=== PATIENT | male | born 1985 | race Caucasian/White ===

== ENCOUNTER 2024-01-17 21:07 | Emergency (ER) | payer MEDICAID, SELFPAY ==
[2024-01-17 21:07] VITALS: BMI 35.6
== END 2024-01-17 21:44 | disposition left against medical advice (07) ==
PROVIDERS: Emergency Provider Emergency Medicine
DX: Z53.21 Procedure and treatment not carried out due to patient leaving prior to being seen by health care provider (principal)

== ENCOUNTER 2025-03-15 15:39 | Inpatient (IN) | payer MEDICAID, SELFPAY ==
[2025-03-15 16:08] VITALS: BP 120/82; PULSE 86; RESP 18; TEMP 36.8; O2SAT 100; BMI 37.5
--- NOTE | 2025-03-15 16:16 | XR_ITS ---
EXAMINATION: PA chest single view TECHNIQUE: Upright PA chest single view Date and time: March 15, 2025, 1633 hours, comparison February 13, 2024 INDICATIONS: Chest pain after falling today. FINDINGS: Mild prominence left ventricle Mild to moderate vascular congestion. No pneumothorax. Clavicles ribs appear intact IMPRESSION: Mild to moderate vascular congestion No pneumothorax pulmonary contusion or hemothorax
--- NOTE | 2025-03-15 16:16 | XR_ITS ---
EXAMINATION: Left elbow 2 views TECHNIQUE: AP lateral left elbow 2 views Date and time: March 15, 2025, 1635 hours. FINDINGS: Fracture of the medial ulna with nondisplaced 17 mm fracture fragment Distal humerus radial head and neck appear intact IMPRESSION: Recommend CT scan elbow follow-up to better assess fractures of the proximal ulna
--- NOTE | 2025-03-15 16:16 | EKG_ITS ---
[facility] Test Date: 2025-03-15 Pat Name: MAIRA NICHOLS Department: Room: - Gender: Male Senior [employer]er [employer]: : 1985 Requested By: Mercedes Corrales Order Number: [id number] Reading MD: Mercedes Corrales Measurements Intervals Donie Rate: 99 P: 47 DC: 173 QRS: -26 QRSD: 123 T: 60 QT: 352 QTc: 452 Interpretive Statements SINUS RHYTHM BORDERLINE LEFT AXIS DEVIATION [QRS AXIS < -20] POSSIBLE RIGHT VENTRICULAR CONDUCTION DELAY [RSR (QR) IN V1/V2] Compared to ECG 12/14/2023 22:43:55 No significant changes /store/S0/[id number].pdf
[2025-03-15 16:48] LABS: Basophils # (Auto) 0.0 Thou/mm3 (0.0-0.2); Basophils % (Auto) 0 % (0-2.5); Eosinophils # (Auto) 0.4 Thou/mm3 (0.0-0.5); Eosinophils % (Auto) 5 % (0-10); Immature Granulocytes Auto 0.03 Thou/mm3 (0.00-0.00); Lymphocytes # (Auto) 1.4 Thou/mm3 (1.0-4.8); Lymphocytes % (Auto) 16 % (10-50); Mean Corpuscular HGB Conc 25.4 g/dl (31.0-37.0); Mean Corpuscular Hemoglobin 15.5 pg (25.0-35.0); Mean Corpuscular Volume 61 fL (80-100); Monocytes # (Auto) 0.9 Thou/mm3 (0.0-0.8); Monocytes % (Auto) 10 % (0-12); Neutrophils # (Auto) 5.8 Thou/mm3 (1.8-7.7); Neutrophils % (Auto) 68 % (37-80); Nucleated Red Blood Cell # 0.02 Thou/mm3 (0.00-0.00); Nucleated Red Blood Cell % 0 /100 WBC (0); Platelet Count 453 Thou/mm3 (140-440); RDW Standard Deviation 48.8 fL (35.1-43.9); Red Blood Count 3.03 Miln/mm3 (4.50-5.90); White Blood Count 8.5 Thou/mm3 (3.8-10.6)
[2025-03-15 17:06] LABS: Hematocrit 18.5 % (41.0-53.0); Hemoglobin 4.7 g/dL (13.5-16.0)
[2025-03-15 17:10] LABS: D-Dimer 717 ng/mL (<600)
[2025-03-15 17:13] LABS: Path Review Blood Smear Sent to Pathologist
--- NOTE | 2025-03-15 17:17 | PD.EDRME ---
Rapid Medical Screening Exam RME Arrival date/time: 03/15/25 15:39 This is a case of 40-year-old male who came into the emergency room initially with with both pain due to fall patient have also chest pain and shortness of breath for 2 weeks Chief Complaint: Extremity Injury, Upper Time Seen by Provider: 03/15/25 15:42 Vital signs: Vital Signs Temperature 98.2 F 03/15/25 16:08 Pulse Rate 86 03/15/25 16:08 Respiratory Rate 18 03/15/25 16:08 Blood Pressure 120/82 03/15/25 16:08 Pulse Oximetry (%) 100 03/15/25 16:08 Oxygen Delivery Method Room Air 03/15/25 16:08 Exam: Moderate tenderness on the left elbow ROM limited neurovascular intact normal rate regular rhythm no murmur clear breath Clinical Impression: Chest pain left elbow pain
[2025-03-15 17:25] LABS: B-Type Natriuretic Peptide 45 pg/mL (0-100)
[2025-03-15 17:27] LABS: Alanine Aminotransferase 16 U/L (10-49); Albumin, Serum 4.8 gm/dL (3.5-5.0); Albumin/Globulin Ratio 2.0 (1.2-2.2); Alkaline Phosphatase 72 U/L (46-116); Anion Gap 10 (7-16); Aspartate Amino Transferase < 8 U/L (0-34); BUN/Creatinine Ratio 13 Ratio (12-20); Bilirubin,Total 0.5 mg/dL (0.3-1.2); Blood Urea Nitrogen 15 mg/dL (9-23); Calcium 9.9 mg/dL (8.3-10.6); Calcium (Corrected) 9.9 mg/dL (8.5-10.1); Carbon Dioxide 24.1 mMol/L (20.0-31.0); Chloride 107 mMol/L (98-107); Creatinine (Component) 1.2 mg/dL (0.6-1.3); Estimated Creatinine Clearance 119.2 mL/min (>60); Globulin 2.4 gm/dL (2.3-3.5); Glucose 97 mg/dL (74-106); Osmolality,Calculated 282 (275-295); Potassium 4.0 mMol/L (3.4-5.1); Sodium 141 mMol/L (136-145); Total Protein 7.2 gm/dL (5.7-8.2); Troponin I < 0.020 ng/mL (0.0-0.045); eGFR > 60 See Note
--- NOTE | 2025-03-15 17:31 | XR_ITS ---
EXAMINATION: Left wrist 2 views TECHNIQUE: AP lateral left wrist 2 views Date and time: March 15, 2025, 1732 hours INDICATIONS: Patient fell today with injury of the wrist, wrist pain. FINDINGS: Acute nondisplaced comminuted fractures distal radial metaphysis Carpal bones intact IMPRESSION: Acute nondisplaced comminuted fractures distal radial metaphysis
--- NOTE | 2025-03-15 17:37 | XR_ITS ---
Examination: Humerus 2 views left Technique: Humerus, AP lateral 2 views Date and time of exam: March 15, 2025, 1737 hours INDICATIONS: Injury to the arm today, arm pain. FINDINGS: No shoulder fracture or dislocation Shaft of the humerus intact IMPRESSION: Negative for fracture
--- NOTE | 2025-03-15 17:39 | EDNOTE_ITS ---
Upper Extremity Injury RME/HPI General Chief Complaint: Extremity Injury, Upper Stated Complaint: L) ARM INJURY, SOB, CHEST PAIN Time Seen by Provider: 03/15/25 15:42 Arrival date/time: 03/15/25 15:39 Limitations: no limitations RME / HPI RME / HPI narrative: 03/15/25 15:39 This is a case of 40-year-old male who came into the emergency room initially with with both pain due to fall patient have also chest pain and shortness of breath for [address] MARIELLE KAM ED EVALUATION 40 year old male with no stated medical history presents to the ED for evaluation of left upper extremity pain after ground level mechanical fall today. States he was carrying stuff while at work when he tripped on a ladder, causing him to fall landing on his left side. Reports majority of pain is located to his elbow area that shoots down to his wrist. No head injury or LOC. No other injuries reported. In the ED, patient additionally complains of on/off mild sharp chest pain, shortness of breath, and feeling fatigued over the course of 1 month. Worse with exertion. Denies consulting his PCP regarding these symptoms. Denies any bleeding gums, epistaxis, hematemesis, abdominal pain, hematuria, hematochezia, or melena. Denies any known history of anemia. No blood thinners, no asp/plavix,ibuprofen Exam: Moderate tenderness on the left elbow ROM limited neurovascular intact normal rate regular rhythm no murmur clear breath Impression: Chest pain left elbow pain Related Data Previous Rx's ?Medication ?Instructions ?Recorded ibuprofen 800 mg tablet (IBU) 800 mg PO TID PRN pain # 30 tabs 08/31/18 ibuprofen 800 mg tablet 800 mg PO TID PRN pain #30 t abs 02/06/23 albuterol sulfate 90 mcg/actuation 2 puff inhalation Q 6H PRN 12/15/23 aerosol inhaler (Ventolin HFA) shortness of breath or wheezing #8.5 grams Allergies Allergy/AdvReac Type Severity Reaction Status Date / Time avocado Allergy Unknown SWELLING, Verified 03/15/25 15:43 DIFF BREATHING Bee Stings Allergy Unknown Uncoded 03/15/25 15:43 MELONS Allergy Unknown SWELLING, Uncoded 03/15/25 15:43 DIFF BREATHING Nut Tree Allergy Unknown Uncoded 03/15/25 15:43 Review of Systems Review of Systems Systems Reviewed: All systems reviewed, normal except as documented ED Exam General Limitations: Present no limitations General appearance: Present alert and in no apparent distress Head Head exam: Present atraumatic, normocephalic and normal inspection Eye Eye exam: Present normal appearance, PERRL and EOMI ENT ENT exam: Present normal exam, normal oropharynx and mucous membranes moist Neck Neck exam: Present normal inspection, full ROM and trachea midline Chest Chest inspection: Present normal inspection and symmetric chest wall rise Respiratory Respiratory exam: Present normal lung sounds bilaterally Cardiovascular Cardiovascular exam: Present regular rate, normal rhythm and normal heart sounds Abdominal Exam Abdominal exam: Present soft, normal bowel sounds and other (No bruising appreciated on patient's chest abdomen nor back); Absent distention, tenderness, guarding, rebound or rigidity Extremities Exam Extremities exam: Present full ROM and other (Compartments soft, skin intact 1+ edema bilateral lower extremities, 2+ radial and ulnar pulses throughout ; tenderness palpation at the left upper extremity at the level of the humerus elbow as well as wrist.) Back Exam Back exam: Present normal inspection, full ROM and other (No midline tenderness palpation, no step-offs or deformities, no bruising appreciated,); Absent tenderness Neurological Exam Neurological exam: Present alert, oriented X3, CN II-XII intact and normal gait Psychiatric Psychiatric exam: Present normal affect and normal mood Skin Skin exam: Present warm, dry, intact and pallor Course Quality Measures none Orders Category Date Time Status EKG (ED ONLY) *Do not use* NOW Care 03/15/25 16:17 Completed Transfuse,blood/blood products NOW Care 03/15/25 17:37 Active splint [Splint / Immobilizer] STAT Care 03/15/25 17:47 Active Consult to Gastroenterology Stat Cons 03/15/25 17:40 Ordered EKG (ED Only) Stat Exams 03/15/25 16:16 Draft XR chest 1V Stat Exams 03/15/25 16:16 Completed XR elbow LT 2V Stat Exams 03/15/25 16:16 Completed XR humerus LT MIN 2V Stat Exams 03/15/25 17:37 Completed XR wrist LT 2V Stat Exams 03/15/25 17:31 Completed BNP [B-Type Natriuretic Peptide] Stat Lab 03/15/25 16:31 Completed CBC Stat Lab 03/15/25 16:31 Completed Comprehensive Metabolic Panel Stat Lab 03/15/25 16:31 Completed D-Dimer Stat Lab 03/15/25 16:31 Completed Path Review Blood Smear Stat Lab 03/15/25 16:31 Completed Troponin I Stat Lab 03/15/25 16:31 Completed Type and Screen Stat Lab 03/15/25 17:26 Results Urinalysis Stat Lab 03/15/25 16:16 Ordered prbc [Red Blood Cells] Stat Lab 03/15/25 17:26 Results HYDROcodone*/APAP 5/325 [[place] 5/325] Med 03/15/25 17:31 Discontinued 1 tab PO X1 ONE Vital Signs Vital signs: Vital Signs Temperature 98.2 F 03/15/25 16:08 Pulse Rate 86 03/15/25 16:08 Respiratory Rate 18 03/15/25 16:08 Blood Pressure 120/82 03/15/25 16:08 Pulse Oximetry (%) 100 03/15/25 16:08 Oxygen Delivery Method Room Air 03/15/25 16:08 Pulse ox is 100% on room air which is adequate. PROCEDURES: Orthopedic Splinting/Casting Injury #1: Side: left Upper Extremity Injury Location: elbow and forearm Upper Extremity Immobilizer: sugar tong splint (double sugar tong ) Extremity Injury MDM Narrative MDM Narrative:: Phoebe Buchanan am scribing for and in the presence of Dr. Harrington. Patient is a 40-year-old male is in the emerged from with concerns for weakness, left arm pain after he fell. Vital signs and exam as listed. Concern for fracture dislocation, soft tissue injury of the left upper extremity. Compartment soft less likely compartment syndrome. With regards to weakness concern for metabolic disturbance, pneumonia, ACS arrhythmia electrolyte abnormality among others. Patient without dysuria less likely urinary tract infection. Ordered x-rays of the humerus elbow wrist, EKG chest x-ray and labs. Patient did not hit his head, has no head or neck pain, less likely intracranial and cervical spine injury. X-rays of the left upper extremity with evidence of a fracture of the distal radius as well as the proximal ulna. Patient is neurovascularly intact. Fractures are not displaced. No need for reduction. Patient was placed in a double sugar-tong splint. Post splint check patient is neurovascularly intact. Definitive management performed here in the emergency department. Patient was advised that when he gets discharged he is to follow-up with an orthopedic surgeon as an outpatient. Chest x-ray unremarkable. EKG performed today 1619 notable for sinus rhythm, normal intervals, nonspecific T wave changes, not a cardiac alert. Patient does have a hemoglobin of 4.7 previously was 11. Hematocrit is 18.5. Microcytic anemia. Patient without any sources of bleeding, weakness preceded patient's fall today. Given that patient does not have any bruising no chest or belly pains, all of his extremities are soft, less likely acute bleed. Suspect possible slow GI bleed. Consulted on-call jet engine mechanic Dr. Martin, in agreement for GI evaluation tomorrow. Request that patient be n.p.o. at midnight. Labs without any acute metabolic disturbance, troponin not elevated, dimer elevated however this test was ordered by advanced practice provider prior to my evaluation. Patient is not short of breath no hemoptysis no lower extremity swelling, has not been immobile does not take any hormonal medication has not been tachycardic, short of breath or hypoxic. Less likely pulmonary embolus. 1738: I spoke with hospitalist team C for admission. Discussed patients PMHx, HPI, ED course, exam findings, labs, and radiology results. I did discuss elevated dimer, given patient's current presentation, less likely pulmonary embolus. Will hold off on CT angio at this time. Hospitalist team in agreement. 1740: I spoke with GI Dr. Martin. Discussed patients PMHx, HPI, ED course, exam findings, lab results. He agrees to consult. Updated patient, patient in agreement with treatment plan. Agrees to receive blood transfusion, evaluation of his symptomatic anemia and workup per hospitalist team. Total critical care time: Approximately?35?minutes Due to a high probability of clinically significant, life threatening deterioration, the patient required my highest level of preparedness to intervene emergently and I personally spent this critical care time directly and personally managing the patient. This critical care time included obtaining a history; examining the patient; pulse oximetry; ordering and review of studies; arranging urgent treatment with development of a management plan; evaluation of patient's response to treatment; frequent reassessment; and, discussions with other providers. This critical care time was performed to assess and manage the high probability of imminent, life-threatening deterioration that could result in multi-organ failure. It was exclusive of separately billable procedures and treating other patients and teaching time. Please see MDM section and the rest of the note for further information on patient assessment and treatment. Patient data External records reviewed:: [facility] previous records Clinical information provided by:: patient Social determinants that could affect healthcare access:: none Patient has the following chronic illnesses:: None reported How is presenting disease/condition affected by chronic disease/condition?: no chronic disease Evaluation data The following diagnostics were reviewed and interpreted by me:: lab results, radiology exam(s) and EKG tracing(s) (EKG @ 16:19, interpreted by me, normal sinus rhythm, rate 99, borderline left axis deviation, no STEMI.) Lab and/or radiology exams considered but not ordered:: None Interpretation Summary: Ordering Physician: Mercedes Maloney Date of Service: 03/15/25 Procedure(s): XR chest 1V Accession Number(s): [id number] cc: Jose Powell MD; Main Main MD; Mercedes Maloney~ EXAMINATION: PA chest single view TECHNIQUE: Upright PA chest single view Date and time: March 15, 2025, 1633 hours, comparison February 13, 2024 INDICATIONS: Chest pain after falling today. FINDINGS: Mild prominence left ventricle Mild to moderate vascular congestion. No pneumothorax. Clavicles ribs appear intact IMPRESSION: Mild to moderate vascular congestion No pneumothorax pulmonary contusion or hemothorax Dictated By: Main Main MD Signed By: <Electronically signed by Main Main MD in OV> 03/15/25 1720 ======= Ordering Physician: Mercedes Maloney Date of Service: 03/15/25 Procedure(s): XR elbow LT 2V Accession Number(s): [id number] cc: Jose Powell MD; Main Main MD; Mercedes Maloney~ EXAMINATION: Left elbow 2 views TECHNIQUE: AP lateral left elbow 2 views Date and time: March 15, 2025, 1635 hours. FINDINGS: Fracture of the medial ulna with nondisplaced 17 mm fracture fragment Distal humerus radial head and neck appear intact IMPRESSION: Recommend CT scan elbow follow-up to better assess fractures of the proximal ulna Dictated By: Main Main MD Signed By: <Electronically signed by Main Main MD in OV> 03/15/25 1714 Medications / Prescriptions Medications or Prescriptions considered but not ordered:: None Medication administrations:: Medication Administration History Discontinued Medications Hydrocodone Bitart/Acetaminophen (Hydrocodone/[place] 5/325 Tablet) 1 tab PO X1 ONE Stop: 03/15/25 17:32 Last Admin: 03/15/25 17:50 Dose: 1 tab Documented By: TM See above Consultations Consultation(s) initiated? (list below): Yes Consultation #1 (Physician, Specialty, Details): See MDM Diagnosis Upper Extremity Injury Differential Diagnosis: sprain and strain of wrist, fracture of wrist and fracture of humerus Most likely diagnosis given after review of the tests above:: Symptomatic anemia Medial ulnar fracture Weakness Admission Indicated Admission indicated?: indicated Admission Request Was there a request for admission?: Yes Admission Attestation Admission request attestation: Discussed case with [] from Hospitalist service regarding admission. Discussed patients ED course, exam findings, labs, and radiology results. The Hospitalist [agrees,declines] to accept the patient for admission. Disposition Plan Disposition Plan: Admit Discharge Plan Plan Patient Disposition: Admit Acute Care w/in Hospital Prescriptions/Referrals Prescriptions/Med Rec: No Action ibuprofen [IBU] 800 mg tablet 800 mg PO TID PRN (Reason: pain) Qty: 30 0RF ibuprofen 800 mg tablet 800 mg PO TID PRN (Reason: pain) Qty: 30 0RF albuterol sulfate [Ventolin HFA] 90 mcg/actuation HFA aerosol inhaler 2 puff inhalation Q6H PRN (Reason: shortness of breath or wheezing) Qty: 8.5 0RF Referrals: Jose Powell MD [Primary Care Provider, Family Practice] - In 1 week Problem List Clinical Impression: Symptomatic anemia, Weakness, Fracture, ulna Patient/Caregiver Discharge Instructions Print Language: Lithuanian Stand Alone Forms: Rissa Award Info., Patient Portal Info Letter
[2025-03-15] MEDS: HYDROcodone/APAP 5/325 TABLET 1 TAB PO ×2 (17:50→22:18)
[2025-03-15 19:25] VITALS: BP 129/73; PULSE 99; RESP 18; TEMP 36.8; O2SAT 95
--- NOTE | 2025-03-15 19:54 | ESHP_ITS ---
<Statement entered by Sylvia Valverde MD - 03/16/25 02:47> Patient is 40 yr male with PMH of asthma and meth use who presented to the ED for evaluation of left upper extremity pain after fall. Patient fell on left arm after feeling lightheaded. No head injury or LOC. No other injuries reported. Able to move fingers and no associated numbness at present. Endorses worsening fatigue since past few months. Denies any hematemasis, hematochezia, or melena. Hb 4.7, MCV 67. EKG Sinus rhythm HR 99. XR elbow showed Fracture of the medial ulna with nondisplaced 17 mm fracture fragment. Distal humerus radial head and neck appear intact. Wrist Xr showed acute nondisplaced comminuted fractures distal radial metaphysis. CT elbow ordered per ortho. Showed Acute fractures involving the coronoid process of the ulna with displaced bone fragments. Suspicious for nondisplaced fracture of the radial neck. Day team spoke with ortho who was not concerned about need for emergent surgery of arm. Stated okay to admit patient. Dr. Martin was consulted. Planning for EGD to evaluate potential source of GI bleed. Continue IV PP 40 BID, NPO, start prbc transfusion. Patient to see ortho outpatient for mgmt of fracture. Note reviewed, I agree with most of its contents and agree with the patient's care as documented by Dr. Lan. The patient's management plan was discussed with my attending physician Dr. Piña. Sylvia Valverde, PGY-2 Documentation for date of: 03/15/25 HPI History of Present Illness History of present illness: 40 year old male with history of asthma and meth use who presented to the ED for evaluation of left upper extremity pain after ground level fall today. Admitted for acute microcytic anemia. ED Course Summary Vitals: BP 120/82 HR HR 86 RR 18 T 98.2F O2 sat 100% Labs: Hgb 4.7 MCV 67 Plt 453 D-dimer 717 EKG: Sinus rhythm HR 99 possible L axis deviation QTc [address]: Acute fractures involving the coronoid process of the ulna with displaced bone fragments. Suspicious for nondisplaced fracture of the radial neck Humerus XR: negative for fracture Wrist XR: acute nondisplaced comminuted fractures distal radial metaphysis Elbow XR: Fracture of the medial ulna with nondisplaced 17 mm fracture fragment. Distal humerus radial head and neck appear intact Chest XR: Mild to moderate vascular congestion. No pneumothorax pulmonary contusion or hemothorax Treatment: Narco x1 Consults and why: Dr. Martin for acute anemia Upon initial review patient confirms narrative from ED. States he was carrying stuff while at work when he stood up to fast and got lightheaded from standing up to fast, causing him to fall landing on his left side with his arm bent backwards. Reports majority of pain is located to his elbow area that shoots down to his wrist. No head injury or LOC. No other injuries reported. Able to move fingers and no associated numbness at present. Patient additionally complains of on/off mild sharp chest pain, shortness of breath, and feeling fatigued over the course of 1-2 months. Worse with exertion. Not associated with eating. States it usually occurs after working in the heat and that he does not drink enough water - mainly sodas. Also confirms he intermittently/frequently does methamphetamines. Denies consulting his PCP regarding these symptoms. Denies any bleeding gums, epistaxis, hematemesis, abdominal pain, hematuria, hematochezia. Denies any known history of anemia. No blood thinners, no asp/plavix, ibuprofen. Has regular BMs 1-2 per day. Additionally, patient also has difficulty completely emptying his bladder at times and needing to urinate 1-2x per hour each night. He thinks he may have an enlarged prostate but is not concerned with it at the moment. Code: Full Insulin: None Medical Hx: Asthma - no current treatments Medications: None Allergies: Avocado, bee stings, melons, nuts Surgical history: Noncontributory Fhx: Noncontributory Living: Housed with and kids and cousins Work: [employer] Alcohol: 1 beer/week Cigarettes/tobacco: 1/2 pack per day for 20 years --> 10 pack years Recreational drugs: Cannabis Meth (UDS done after opiates given in ED) Patient admitted for: Acute microcytic anemia All 12 systems reviewed and were negative except otherwise stated in HPI. Exam Vital Signs Temp Pulse Resp BP Pulse Ox O2 Del Method 98.2 F 99 18 129/73 95 Room Air 03/15/25 19:25 03/15/25 19:25 03/15/25 19:25 03/15/25 19:25 03/15/25 19:25 03/15/25 19:25 Narrative Exam GENERAL APPEARANCE: AOx3. NAD, activity normal for age, well developed/ well nourished, no cyanosis or diaphoresis. + pallor. Poor capillary refill >3 seconds HEENT: Normocephalic atraumatic, no facial trauma, neck is supple. L ids/conjunctiva pale. Mucous membranes moist, nares normal, lips/teeth normal uvula midline without oral pharyngeal erythema, exudate or swelling TMs normal bilaterally. No lymphangitis/lymphedema. CARDIAC: Regular rate and rhythm, S1+S2 heard. No murmurs, rubs, or gallops noted RESPIRATORY: respiratory effort normal, speaks in full sentences, no tripod position, no accessory muscle use. Lungs clear to auscultation with minor bilateral wheezes ABDOMINAL: NBS. Soft, ND/NT. No evidence of fluid wave. No pulsatile masses on exam, rebound tenderness, Landrum sign or pain over Mcburney's point. MUSCLES/EXTREMITIES: L arm in sling no numbness, able to wiggle fingers. +2 pedal edema DERM: Warm, pink and dry. No rashes, dermatoses, petechiae or lesions. NEUROLOGICAL: Speech is clear and appropriate. Normal level of consciousness. Gait and coordination are normal. 5/5 strength in all extremities. PSYCH: Normal mood and affect. Judgement/competence is appropriate Results: Labs 03/15/25 16:31 03/15/25 16:31 Labs: Short CBC 03/15/25 Range/Units 16:31 WBC 8.5 (3.8-10.6) Thou/mm3 Hgb 4.7 L* (13.5-16.0) g/dL Hct 18.5 L* (41.0-53.0) % Plt Count 453 H (140-440) Thou/mm3 BMP 03/15/25 16:31 Sodium 141 Potassium 4.0 Chloride 107 Carbon Dioxide 24.1 BUN 15 Creatinine 1.2 Glucose 97 Calcium 9.9 Cardiac Enzymes 03/15/25 Range/Units 16:31 Troponin I < 0.020 (0.0-0.045) ng/mL Liver Function 03/15/25 Range/Units 16:31 Total Bilirubin 0.5 (0.3-1.2) mg/dL AST < 8 (0-34) U/L ALT 16 (10-49) U/L Alkaline Phosphatase 72 (46-116) U/L Albumin 4.8 (3.5-5.0) gm/dL Quality Measures Quality Measures VTE prophylaxis Medications Home Medications and Allergies Allergies Allergy/AdvReac Type Severity Reaction Status Date / Time avocado Allergy Unknown SWELLING, Verified 03/15/25 15:43 DIFF BREATHING Bee Stings Allergy Unknown Uncoded 03/15/25 15:43 MELONS Allergy Unknown SWELLING, Uncoded 03/15/25 15:43 DIFF BREATHING Nut Tree Allergy Unknown Uncoded 03/15/25 15:43 Visit Medications Discontinued Medications Hydrocodone Bitart/Acetaminophen (Hydrocodone/Apap 5/325 Tablet) 1 tab PO X1 ONE Stop: 03/15/25 17:32 Last Admin: 03/15/25 17:50 Dose: 1 tab Assessment & Plan Plan 40 year old male with history of asthma and meth use who presented to the ED for evaluation of left upper extremity pain after ground level fall today. Admitted for acute microcytic anemia. Given 3 units of PRBCs in ED (03/16/2025). #Acute symptomatic anemia #GI bleed? Hgb 4.7 HCT 18.5 MCV 61 on admission. Presented due to arm fracture after falling from a lightheaded episode.additionally complains of on/off mild sharp chest pain, shortness of breath, and feeling fatigued over the course of 1-2 months. Worse with exertion. Not associated with eating. States it usually occurs after working in the heat and that he does not drink enough water - mainly sodas. Also confirms he intermittently/frequently does methamphetamines. Denies any bleeding gums, epistaxis, hematemesis, abdominal pain, hematuria, hematochezia. Denies any known history of anemia. No blood thinners, no asp/plavix, ibuprofen. Patient most likely is volume depleted/anemic. Has prolonged capillary refill >3 seconds and mucosal and nail pallor. Given 3 units of PRBCs in ED. Blood products given therefore not appropriate time to do iron panel for anemia. Plan: -SCDs -Orthostatic vitals -Iron studies -FUP post transfusion H+H -Transfuse if Hgb >7 -FUP Peripheral blood smear -GI Dr. Martin consulted --> NPO for possible EGD #Acute undisplaced fractures of coronoid process #Acute non-displaced fracture of distal radial metaphysis #Fall Patient presents after ground level fall where he reports his elbow bent backwards. fragments. Suspicious for non-displaced fracture of the radial neck. Humerus XR: negative for fracture. Wrist XR: acute non-displaced comminuted fractures distal radial metaphysis. Elbow XR: Fracture of the medial ulna with non-displaced 17 mm fracture fragment. Distal humerus radial head and neck appear intact. Plan: -Splinted in ED -F/U Elbow CT -Consider Ortho consult if available as warranted. #Prostatomegaly? Ddx BPH Patient also has difficulty completely emptying his bladder at times and needing to urinate 1-2x per hour each night. He thinks he may have an enlarged prostate but is not concerned with it at the moment. Plan: -Tamsulosin initiation after EGD -FUP outpatient with urology #Hx of asthma Patient was on an inhaler for many years, decided 10 years ago to stop using his inhaler because he was using it too much. Minor bilateral wheezes on exam. Plan: -Duonebs PRN Q4HRRT #Hx of Polysubstance Use Patient reports using methamphetamines and cannabis. UDS +Meth +cannabis +opiates. Patient denies opiate use, of note UDS was taken after administration of Narco. Plan: -Counseled patient on meth cessation Health Maintenance: Code status: Full DVT prophylaxis: SCDs - consider AC with GI prophylaxis: Protonix Diet: NPO pending EGD Wood: None Lines: PIV Supplemental O2: None Disposition: Tele for acute microcytic anemia Patient seen and reviewed with attending Dr. Piña and senior Sylvia Valverde. Note written by Liu Lan MD PGY-1 Attending Provider Attestation/Addendum After examination of the patient and review of the clinical data I feel that this patient needs admission to the hospital for further treatment/evaluation. Plan of care discussed with patient and is in agreement. I Sabi Piña MD, attest that I was physically present for butts portions of evaluation, and examined patient, labs and imagings and plan of care were discussed with IM residents team, and I agree with the findings and plans documented above.
[2025-03-15 19:58] VITALS: BP 134/82; PULSE 98; RESP 18; TEMP 37; O2SAT 98
--- NOTE | 2025-03-15 20:00 | XR_ITS ---
Examination: CT left elbow, without contrast. 2-D sagittal reconstructions. 2-D coronal reconstructions. 3-D reconstructions. Date and time of exam: March 15, 2025, 2056 hours INDICATIONS: Patient fell at work today with injury to the elbow, elbow pain TECHNIQUE: Multiple 1.25 mm axial sections of the elbow, low dose protocols FINDINGS: Acute fractures involving the coronoid process of the ulna with displaced bone fragments Ulnar notch intact Distal humerus including medial and lateral humeral condyles intact Radial head is poorly visualized Suspicious for nondisplaced fracture of the radial neck Impression: Acute fractures involving the coronoid process of the ulna with displaced bone fragments Suspicious for nondisplaced fracture of the radial neck
[2025-03-15 20:15] VITALS: BP 142/92; PULSE 98; RESP 18; TEMP 36.8; O2SAT 99
--- NOTE | 2025-03-15 20:21 | PD.IMCONS ---
HPI Data of Consult Requesting Physician: Miguel Holman MD Primary Care Provider: Jose Powell MD Consult Narrative Reason for consult: H/H 4.7/18.5 History of present illness: 40 years old male presented to the emergency room fall at work after tripping Patient presented with the left arm pain shooting down to the left wrist as well as shortness of breath and weakness On further examination and laboratory testing patient was found to have a hemoglobin of 4.7 hematocrit 18.5 and a platelet count of 1 53,000 and a WBC count of 8.5 D-dimer was 717 No history of any kailey hematemesis melena or bright red bleeding per rectum cc:: cc: Miguel Holman MD Review of Systems Review of Systems Systems Reviewed: All systems reviewed, normal except as documented Meds Home Medications and Allergies Allergies Allergy/AdvReac Type Severity Reaction Status Date / Time avocado Allergy Unknown SWELLING, Verified 03/15/25 15:43 DIFF BREATHING Bee Stings Allergy Unknown Uncoded 03/15/25 15:43 MELONS Allergy Unknown SWELLING, Uncoded 03/15/25 15:43 DIFF BREATHING Nut Tree Allergy Unknown Uncoded 03/15/25 15:43 Exam Vital Signs Temp Pulse Resp BP Pulse Ox O2 Del Method 98.3 F 98 18 142/92 H 99 Room Air 03/15/25 20:15 03/15/25 20:15 03/15/25 20:15 03/15/25 20:15 03/15/25 20:15 03/15/25 19:25 Constitutional Comments: Chronically ill-appearing Routine Respiratory Exam Comments: Normal to auscultation Routine Abdominal Exam Comments: Soft nontender Results Labs 03/15/25 16:31 03/15/25 16:31 Labs: Short CBC 03/15/25 Range/Units 16:31 WBC 8.5 (3.8-10.6) Thou/mm3 Hgb 4.7 L* (13.5-16.0) g/dL Hct 18.5 L* (41.0-53.0) % Plt Count 453 H (140-440) Thou/mm3 BMP 03/15/25 16:31 Sodium 141 Potassium 4.0 Chloride 107 Carbon Dioxide 24.1 BUN 15 Creatinine 1.2 Glucose 97 Calcium 9.9 Cardiac Enzymes 03/15/25 Range/Units 16:31 Troponin I < 0.020 (0.0-0.045) ng/mL Liver Function 03/15/25 Range/Units 16:31 Total Bilirubin 0.5 (0.3-1.2) mg/dL AST < 8 (0-34) U/L ALT 16 (10-49) U/L Alkaline Phosphatase 72 (46-116) U/L Albumin 4.8 (3.5-5.0) gm/dL Assessment and Plan Additional Assessment & Plan Additional Plan: # Anemia blood loss Occult GI bleeding # Shortness of breath secondary to above Plan Agree with the blood transfusion Prior to transfusion iron panel, iron saturation reticulocyte count B12 and folate level IV Protonix Consent obtained for fiberoptic esophagogastroduodenoscopy with possible therapeutic intervention possible biopsy under intravenous moderate sedation scheduled for tomorrow If EGD is negative Will consider doing a fiberoptic colonoscopy prior to discharge Thank you very much for the opportunity to participate in care of this patient
[2025-03-15 20:30] VITALS: BP 122/74; PULSE 93; RESP 18; TEMP 36.9; O2SAT 98
[2025-03-15 21:05] VITALS: BMI 40.1
[2025-03-15] MEDS: FAMOTIDINE INJ 10 MG/ML VIAL 2 ML 20 MG IVP (21:36)
[2025-03-15 22:10] VITALS: BP 135/70; PULSE 101; RESP 18; TEMP 37; O2SAT 100
[2025-03-15 23:41] LABS: Collection Type, Urine Clean Catch; WBC,Urine 0 /hpf (0-5)
[2025-03-15 23:48] LABS: Bilirubin,Urine Negative (Negative); Blood,Urine Negative (Negative); Clarity,Urine Clear (Clear/Hazy); Color,Urine Lt-Yellow (Lt Yel-Yel); Glucose, Urine Negative (Negative); Ketones,Urine Negative (Negative); Leukocyte Esterase,Urine Negative (Negative); Nitrite,Urine Negative (Negative); PH,Urine 5.5 (5.0-7.0); Protein,Urine Negative (Neg - Trace); RBC,Urine < 1 /hpf (0-3); Specific Gravity,Urine 1.021 (1.001-1.035); Squamous Epithelial Cell,Urine < 1 /hpf (0-5); Urobilinogen,Urine Negative mg/dL (0.0-1.0)
--- NOTE | 2025-03-15 23:59 | PC.NURSE ---
Dr. Jennifer rivera holding blood transfusion d/t high BP 169/104
[2025-03-16] VITALS (36 sets, daily range): BP systolic 114–173; BP diastolic 77–118; PULSE 65–97; RESP 9–97; TEMP 36.3–37.4; O2SAT 95–100
[2025-03-16 00:02] LABS: Amphetamine/Methamp Scrn,U Positive (Negative); Barbiturate Screen,Urine Negative (Negative); Benzodiazepines Screen,Urine Negative (Negative); Benzoylecgonine Screen, Ur Negative (Negative); Fentanyl Screen,Urine Negative (Negative); Opiate Screen,Urine Positive (Negative); THC Screen,Urine Positive (Negative)
[2025-03-16 05:46] LABS: Basophils # (Auto) 0.0 Thou/mm3 (0.0-0.2); Basophils % (Auto) 0 % (0-2.5); Eosinophils # (Auto) 0.2 Thou/mm3 (0.0-0.5); Eosinophils % (Auto) 3 % (0-10); Hematocrit 20.9 % (41.0-53.0); Immature Granulocytes Auto 0.02 Thou/mm3 (0.00-0.00); Lymphocytes # (Auto) 1.1 Thou/mm3 (1.0-4.8); Lymphocytes % (Auto) 14 % (10-50); Mean Corpuscular HGB Conc 26.8 g/dl (31.0-37.0); Mean Corpuscular Hemoglobin 17.3 pg (25.0-35.0); Mean Corpuscular Volume 65 fL (80-100); Monocytes # (Auto) 1.0 Thou/mm3 (0.0-0.8); Monocytes % (Auto) 14 % (0-12); Neutrophils # (Auto) 5.0 Thou/mm3 (1.8-7.7); Neutrophils % (Auto) 68 % (37-80); Nucleated Red Blood Cell # 0.02 Thou/mm3 (0.00-0.00); Nucleated Red Blood Cell % 0 /100 WBC (0); Platelet Count 403 Thou/mm3 (140-440); RDW Standard Deviation 57.9 fL (35.1-43.9); Red Blood Count 3.24 Miln/mm3 (4.50-5.90); White Blood Count 7.4 Thou/mm3 (3.8-10.6)
[2025-03-16 06:02] LABS: Hemoglobin 5.6 g/dL (13.5-16.0)
[2025-03-16] MEDS: HYDROcodone/APAP 5/325 TABLET 1 TAB PO ×2 (06:13→10:44)
[2025-03-16 06:24] LABS: Alanine Aminotransferase 14 U/L (10-49); Albumin, Serum 4.5 gm/dL (3.5-5.0); Albumin/Globulin Ratio 1.9 (1.2-2.2); Anion Gap 10 (7-16); Aspartate Amino Transferase 19 U/L (0-34); BUN/Creatinine Ratio 14 Ratio (12-20); Bilirubin,Total 1.1 mg/dL (0.3-1.2); Blood Urea Nitrogen 13 mg/dL (9-23); Calcium 9.3 mg/dL (8.3-10.6); Calcium (Corrected) 9.3 mg/dL (8.5-10.1); Carbon Dioxide 25.4 mMol/L (20.0-31.0); Chloride 106 mMol/L (98-107); Creatinine (Component) 0.9 mg/dL (0.6-1.3); Estimated Creatinine Clearance 164.8 mL/min (>60); Globulin 2.4 gm/dL (2.3-3.5); Glucose 95 mg/dL (74-106); Magnesium 1.9 mg/dL (1.6-2.6); Osmolality,Calculated 281 (275-295); Phosphorous 3.8 mg/dL (2.4-5.1); Potassium 3.8 mMol/L (3.4-5.1); Sodium 141 mMol/L (136-145); Total Protein 6.9 gm/dL (5.7-8.2); eGFR > 60 See Note
[2025-03-16 06:54] LABS: Alkaline Phosphatase 72 U/L (46-116)
--- NOTE | 2025-03-16 08:03 | ESPR_ITS ---
<Statement entered by Zeynep Kendrick MD - 03/17/25 16:24> Pt is seen at beside, scheduled for EGD. Pt is s/p 3 units of pRBCs. Will repeat H-H. no signs of active bleeding. Pt has severe iron deficiency anemia, will order IV iron. Pt is a long time meth user, will order echo. Patient was seen and examined by me personally. I have directly supervised and reviewed documentation by the team resident and agree with its findings. ------- Plan of care was discussed with the attending, Dr. Irasema Kendrick, PGY-2 Documentation for date of: 03/16/25 Subjective Subjective Interval history: patient seen and examined at bedside patient states that he has experienced orthostatic hotn for the past 2 months. he has not seen his pcp in >20 years. denies excessive nsaid use pending EGD received 3 units prbc, post transfusion h and h 6.4 from 4.7, ordered 2 additional PRBC, will transfuse 1 unit this AM start 200 IV iron succrose. for 3 days. Exam Vital Signs Temp Pulse Resp BP Pulse Ox O2 Del Method 97.5 F 81 16 149/95 H 97 Room Air 03/16/25 06:50 03/16/25 07:41 03/16/25 06:50 03/16/25 06:50 03/16/25 06:50 03/16/25 00:00 Narrative Exam GENERAL APPEARANCE: AOx3. NAD, activity normal for age, well developed/ well nourished, no cyanosis or diaphoresis. + pallor. Poor capillary refill >3 seconds HEENT: Normocephalic atraumatic, no facial trauma, neck is supple. L ids/conjunctiva pale. Mucous membranes moist, nares normal, lips/teeth normal uvula midline without oral pharyngeal erythema, exudate or swelling TMs normal bilaterally. No lymphangitis/lymphedema. CARDIAC: Regular rate and rhythm, S1+S2 heard. No murmurs, rubs, or gallops noted RESPIRATORY: respiratory effort normal, speaks in full sentences, no tripod position, no accessory muscle use. Lungs clear to auscultation ABDOMINAL: NBS. Soft, ND/NT. No evidence of fluid wave. No pulsatile masses on exam, rebound tenderness, MUSCLES/EXTREMITIES: L arm in sling no numbness with emma bandage and splint. able to wiggle fingers. +2 pedal edema DERM: Warm, pink and dry. No rashes, dermatoses, petechiae or lesions. NEUROLOGICAL: Speech is clear and appropriate. Normal level of consciousness. Gait and coordination are normal. 5/5 strength in all extremities. PSYCH: Normal mood and affect. Judgement/competence is appropriate Objective Labs 03/16/25 11:09 03/16/25 04:25 Labs: Laboratory Results - last 24 hr 03/15/25 03/15/25 03/15/25 16:31 17:26 23:10 WBC 8.5 RBC 3.03 L Hgb 4.7 L* Hct 18.5 L* MCV 61 L MCH 15.5 L MCHC 25.4 L RDW Std Deviation 48.8 H Plt Count 453 H Neut % (Auto) 68 Lymph % (Auto) 16 [place] % (Auto) 10 Eos % (Auto) 5 Baso % (Auto) 0 Neut # (Auto) 5.8 Lymph # (Auto) 1.4 [place] # (Auto) 0.9 H Eos # (Auto) 0.4 Baso # (Auto) 0.0 Immature Gran # (Auto) 0.03 H Absolute Nucleated RBC 0.02 H Immature Gran % 0 Nucleated RBC % 0 Smear Path Review Sent to Pathologist D-Dimer 717 H Sodium 141 Potassium 4.0 Chloride 107 Carbon Dioxide 24.1 Anion Gap 10 BUN 15 Creatinine 1.2 Estim Creat Clear Calc 119.2 eGFR > 60 BUN/Creatinine Ratio 13 Glucose 97 Calculated Osmolality 282 Calcium 9.9 Corrected Calcium 9.9 Phosphorus Magnesium Total Bilirubin 0.5 AST < 8 ALT 16 Alkaline Phosphatase 72 Troponin I < 0.020 B-Natriuretic Peptide 45 Total Protein 7.2 Albumin 4.8 Globulin 2.4 Albumin/Globulin Ratio 2.0 Ur Collection Type Clean Catch Urine Color Lt-Yellow Urine Clarity Clear Urine pH 5.5 Ur Specific [place] 1.021 Urine Protein Negative Urine Glucose (UA) Negative Urine Ketones Negative Urine Blood Negative Urine Nitrite Negative Urine Bilirubin Negative Urine Urobilinogen (Auto) Negative Ur Leukocyte Esterase Negative Urine RBC < 1 Urine WBC 0 Ur Squamous Epith Cells < 1 Urine Bacteria None Urine Opiates Screen Positive A Urine Fentanyl Screen Negative Ur Barbiturates Screen Negative U Amphetamin/Meth Scrn Positive A U Benzodiazepines Scrn Negative U Cocaine Metab Screen Negative U Marijuana (THC) Screen Positive A Blood Type A Positive Antibody Screen NEGATIVE Crossmatch See Detail Blood Bank Wristband ID Yes 03/16/25 03/16/25 03/16/25 04:25 04:25 04:25 WBC 7.4 RBC 3.24 L Hgb 5.6 L* Cancelled Hct 20.9 L* Cancelled MCV 65 L MCH 17.3 L MCHC 26.8 L RDW Std Deviation 57.9 H Plt Count 403 D Neut % (Auto) 68 Lymph % (Auto) 14 [place] % (Auto) 14 H Eos % (Auto) 3 Baso % (Auto) 0 Neut # (Auto) 5.0 Lymph # (Auto) 1.1 [place] # (Auto) 1.0 H Eos # (Auto) 0.2 Baso # (Auto) 0.0 Immature Gran # (Auto) 0.02 H Absolute Nucleated RBC 0.02 H Immature Gran % 0 Nucleated RBC % 0 Smear Path Review D-Dimer Sodium 141 Potassium 3.8 Chloride 106 Carbon Dioxide 25.4 Anion Gap 10 BUN 13 Creatinine 0.9 Estim Creat Clear Calc 164.8 eGFR > 60 BUN/Creatinine Ratio 14 Glucose 95 Calculated Osmolality 281 Calcium 9.3 Corrected Calcium 9.3 Phosphorus 3.8 Magnesium 1.9 Total Bilirubin 1.1 D AST 19 ALT 14 Alkaline Phosphatase 72 Troponin I B-Natriuretic Peptide Total Protein 6.9 Albumin 4.5 Globulin 2.4 Albumin/Globulin Ratio 1.9 Ur Collection Type Urine Color Urine Clarity Urine pH Ur Specific [place] Urine Protein Urine Glucose (UA) Urine Ketones Urine Blood Urine Nitrite Urine Bilirubin Urine Urobilinogen (Auto) Ur Leukocyte Esterase Urine RBC Urine WBC Ur Squamous Epith Cells Urine Bacteria Urine Opiates Screen Urine Fentanyl Screen Ur Barbiturates Screen U Amphetamin/Meth Scrn U Benzodiazepines Scrn U Cocaine Metab Screen U Marijuana (THC) Screen Blood Type Antibody Screen Crossmatch Blood Bank Wristband ID Quality Measures Quality Measures VTE prophylaxis Assessment & Plan Assessment Current Active Medications: Generic Name Dose Route Start Last Admin Trade Name Freq PRN Reason Stop Dose Admin Acetaminophen 650 mg 03/15/25 19:50 Acetaminophen 325 Mg Tablet PO 04/14/25 19:49 Q6H PRN Fever >100.4 or pain 1-3 Hydrocodone Bitart/Acetaminophen 1 tab 03/15/25 19:50 03/16/25 06:13 Hydrocodone/Apap 5/325 Tablet PO 03/20/25 19:49 1 tab Q4HR PRN Administration PAIN SCALE 4-6 (Moderate Albuterol/Ipratropium 3 ml 03/15/25 19:50 Albuterol/Ipratropium (Duoneb) Rt Elysia 3 Ml Nebu INH 04/14/25 22:59 Q4HRRT PRN wheezing Docusate Sodium 100 mg 03/16/25 09:00 Docusate Sod 100 Mg Capsule PO 04/15/25 08:59 QDAY SEUN Protocol Ondansetron HCl 4 mg 03/15/25 19:50 Ondansetron Inj 2 Mg/Ml Inj 2 Ml IVP 04/14/25 19:49 Q6H PRN NAUSEA OR VOMITING Protocol Pantoprazole Sodium 40 mg 03/16/25 09:00 Pantoprazole Inj 40 Mg Vial IVP 04/15/25 08:59 BID SEUN Plan Mr Pickens is 40 year old gentleman with history of asthma and meth and tobacco use who presented to the ED for evaluation of left upper extremity pain after ground level fall and syncopal episode, found to have severe microcytic anemia with HGb 4.7. Admitted for symptomatic acute microcytic anemia. Given 3 units of PRBCs in ED (03/16/2025) and 1 unit prbc on floor, pending egd #Acute symptomatic anemia #Upper vs Lower GI bleed suspected #GERD Hgb 4.7 HCT 18.5 MCV 61 on admission. Presented due to arm fracture after falling from a lightheaded episode.additionally complains of on/off mild sharp chest pain, shortness of breath, and feeling fatigued over the course of 1-2 months. Worse with exertion. Not associated with eating. States it usually occurs after working in the heat and that he does not drink enough water - mainly sodas. Also confirms he intermittently/frequently does methamphetamines. Denies any bleeding gums, epistaxis, hematemesis, abdominal pain, hematuria, hematochezia. Denies any known history of anemia. No blood thinners, no asp/plavix, ibuprofen. Patient most likely is volume depleted/anemic. Has prolonged capillary refill >3 seconds and mucosal and nail pallor. Given 3 units of PRBCs in ED. 03/16: 2 more units prbc ordered, transfuse 1 Plan: -SCDs -Orthostatic vitals -Iron studies -FUP post transfusion H+H -Transfuse if Hgb >7 -FUP Peripheral blood smear -GI Dr. Martin consulted --> NPO for possible EGD -FOBT pending -Follow up retic count -IV Iron Succrose 200 mg QD for 3 days 03/16-03/19 #Acute undisplaced fractures of coronoid process #Acute non-displaced fracture of distal radial metaphysis #Fall Patient presents after ground level fall where he reports his elbow bent backwards. fragments. Suspicious for non-displaced fracture of the radial neck. Humerus XR: negative for fracture. Wrist XR: acute non-displaced comminuted fractures distal radial metaphysis. Elbow XR: Fracture of the medial ulna with non-displaced 17 mm fracture fragment. Distal humerus radial head and neck appear intact. Plan: -Splinted in ED -Elbow CT with -Ortho consult, appreciate recs #Prostatomegaly? Ddx BPH Patient also has difficulty completely emptying his bladder at times and needing to urinate 1-2x per hour each night. He thinks he may have an enlarged prostate but is not concerned with it at the moment. Plan: -Tamsulosin initiation after EGD -FUP outpatient with urology -bladder scans prn #Asthma Patient was on an inhaler for many years, decided 10 years ago to stop using his inhaler because he was using it too much. Minor bilateral wheezes on exam. Plan: -Duonebs PRN Q4HRRT #Polysubstance Use #Tobacco Use disorder Patient reports using methamphetamines and cannabis. UDS +Meth +cannabis +opiates. Patient denies opiate use, of note UDS was taken after administration of Narco. patient reports smoking 1/2 a pack of cigarrettes / day Plan: -Counseled patient on meth cessation -consider nicotine patch as needed -echo pending Health Maintenance: Code status: Full DVT prophylaxis: SCDs GI prophylaxis: Protonix Diet: NPO pending EGD Wood: None Lines: PIV Supplemental O2: None Disposition: Tele for acute microcytic anemia Plan discussed with my attending Dr. Villalpando and my senior Dr. Aroldo Roth MD PGY1 Attending Provider Attestation/Addendum I have seen and examined the patient. I was physically present for the butts portions of the services provided including history, physical exam, diagnosis, treatment plans and orders. I agree with assessment and plan of care as documented by residents. Patient is a 40 years old male with past medical history of asthma and methamphetamine abuse who presented with complaint of left upper extremity pain following a ground-level fall. He was admitted overnight for management of acute symptomatic anemia with concern for GI bleeding. Also has acute undisplaced fracture of coronoid process and acute nondisplaced fracture of distal radial metaphysis. Patient seen and examined at bedside this morning. Appears comfortable and denies any new complaints. Hemoglobin improved to 6.4 from 4.7 yesterday after transfusion of 3 units PRBC. We will further order 2 units of PRBC and obtain posttransfusion H&H. Patient did mention that he has history of GERD. Iron panel was obtained, shows iron level of 10 with ferritin 2. We will start him on iron infusion. Patient is planned for EGD with gastroenterology, appreciate recommendations. We will obtain orthopedics consult for his elbow fracture. Even though this this note was carefully revised there may still be minor errors in administrative professional due to voice recognition software. Asa Villalpando MD
[2025-03-16 08:43] LABS: Ferritin 2 ng/mL (10.5-307.3); Iron 10 mcg/dL (65-175); Percent Iron Saturation 2 % (20-55); Total Iron Binding Capacity 468 mcg/dL (250-425); Unsaturated Iron Binding 458 (225-295)
--- NOTE | 2025-03-16 10:43 | PD.ORTHPN ---
Subjective Subjective Brief History: Elbow pain Narrative: Patient is a 41-year-old male with a hemoglobin in the fours who is being worked up for cancer. He has no known bleed. He is not an operative candidate at this time. He has an x-ray that demonstrates a distal radius fracture as well as a coronoid fracture on the CT Exam Vital Signs Temp Pulse Resp BP Pulse Ox O2 Del Method 97.8 F 81 18 136/88 H 97 Room Air 03/16/25 09:00 03/16/25 09:00 03/16/25 09:00 03/16/25 09:00 03/16/25 09:00 03/16/25 08:00 Additional findings Additional findings: Imaging demonstrates a coronoid fracture as well as a distal radius fracture. Objective - Ortho Labs 03/16/25 04:25 03/16/25 04:25 Labs: Laboratory Results - last 24 hr 03/15/25 03/15/25 03/15/25 16:31 17:26 23:10 WBC 8.5 RBC 3.03 L Hgb 4.7 L* Hct 18.5 L* MCV 61 L MCH 15.5 L MCHC 25.4 L RDW Std Deviation 48.8 H Plt Count 453 H Neut % (Auto) 68 Lymph % (Auto) 16 [place] % (Auto) 10 Eos % (Auto) 5 Baso % (Auto) 0 Neut # (Auto) 5.8 Lymph # (Auto) 1.4 [place] # (Auto) 0.9 H Eos # (Auto) 0.4 Baso # (Auto) 0.0 Immature Gran # (Auto) 0.03 H Absolute Nucleated RBC 0.02 H Immature Gran % 0 Nucleated RBC % 0 Smear Path Review Sent to Pathologist D-Dimer 717 H Sodium 141 Potassium 4.0 Chloride 107 Carbon Dioxide 24.1 Anion Gap 10 BUN 15 Creatinine 1.2 Estim Creat Clear Calc 119.2 eGFR > 60 BUN/Creatinine Ratio 13 Glucose 97 Calculated Osmolality 282 Calcium 9.9 Corrected Calcium 9.9 Phosphorus Magnesium Iron 10 L TIBC 468 H Iron Saturation 2 L Unsat Iron Binding 458 H Ferritin 2 L Total Bilirubin 0.5 AST < 8 ALT 16 Alkaline Phosphatase 72 Troponin I < 0.020 B-Natriuretic Peptide 45 Total Protein 7.2 Albumin 4.8 Globulin 2.4 Albumin/Globulin Ratio 2.0 Ur Collection Type Clean Catch Urine Color Lt-Yellow Urine Clarity Clear Urine pH 5.5 Ur Specific [place] 1.021 Urine Protein Negative Urine Glucose (UA) Negative Urine Ketones Negative Urine Blood Negative Urine Nitrite Negative Urine Bilirubin Negative Urine Urobilinogen (Auto) Negative Ur Leukocyte Esterase Negative Urine RBC < 1 Urine WBC 0 Ur Squamous Epith Cells < 1 Urine Bacteria None Urine Opiates Screen Positive A Urine Fentanyl Screen Negative Ur Barbiturates Screen Negative U Amphetamin/Meth Scrn Positive A U Benzodiazepines Scrn Negative U Cocaine Metab Screen Negative U Marijuana (THC) Screen Positive A Blood Type A Positive Antibody Screen NEGATIVE Crossmatch See Detail Blood Bank Wristband ID Yes 03/16/25 03/16/25 03/16/25 04:25 04:25 04:25 WBC 7.4 RBC 3.24 L Hgb 5.6 L* Cancelled Hct 20.9 L* Cancelled MCV 65 L MCH 17.3 L MCHC 26.8 L RDW Std Deviation 57.9 H Plt Count 403 D Neut % (Auto) 68 Lymph % (Auto) 14 [place] % (Auto) 14 H Eos % (Auto) 3 Baso % (Auto) 0 Neut # (Auto) 5.0 Lymph # (Auto) 1.1 [place] # (Auto) 1.0 H Eos # (Auto) 0.2 Baso # (Auto) 0.0 Immature Gran # (Auto) 0.02 H Absolute Nucleated RBC 0.02 H Immature Gran % 0 Nucleated RBC % 0 Smear Path Review D-Dimer Sodium 141 Potassium 3.8 Chloride 106 Carbon Dioxide 25.4 Anion Gap 10 BUN 13 Creatinine 0.9 Estim Creat Clear Calc 164.8 eGFR > 60 BUN/Creatinine Ratio 14 Glucose 95 Calculated Osmolality 281 Calcium 9.3 Corrected Calcium 9.3 Phosphorus 3.8 Magnesium 1.9 Iron TIBC Iron Saturation Unsat Iron Binding Ferritin Total Bilirubin 1.1 D AST 19 ALT 14 Alkaline Phosphatase 72 Troponin I B-Natriuretic Peptide Total Protein 6.9 Albumin 4.5 Globulin 2.4 Albumin/Globulin Ratio 1.9 Ur Collection Type Urine Color Urine Clarity Urine pH Ur Specific [place] Urine Protein Urine Glucose (UA) Urine Ketones Urine Blood Urine Nitrite Urine Bilirubin Urine Urobilinogen (Auto) Ur Leukocyte Esterase Urine RBC Urine WBC Ur Squamous Epith Cells Urine Bacteria Urine Opiates Screen Urine Fentanyl Screen Ur Barbiturates Screen U Amphetamin/Meth Scrn U Benzodiazepines Scrn U Cocaine Metab Screen U Marijuana (THC) Screen Blood Type Antibody Screen Crossmatch Blood Bank Wristband ID Assessment & Plan Diagnosis (1) Fracture, ulna: Status: Acute Assessment Additional comments: Patient is a 40-year-old male with a distal radius fracture as well as a coronoid fracture. The CT scan shows that the elbow is reduced. The patient is not an ideal surgical candidate as his hemoglobin is 4.7 on arrival with no known cause. This would be fixed outpatient as this would need a elbow specialist. - Long-arm splint - Follow-up outpatient with an elbow trauma specialist
[2025-03-16 11:26] LABS: Hematocrit 22.8 % (41.0-53.0)
[2025-03-16 11:29] LABS: Hemoglobin 6.4 g/dL (13.5-16.0)
[2025-03-16] MEDS: IRON SUCROSE CPLX INJ 20 MG/ML VIAL 5 ML 200 MG IVP (12:02)
--- NOTE | 2025-03-16 15:52 | ECHO_ITS ---
Patient Info Name: Genaro Pickens Age: 40 years : 1985 Gender: Male Ht: 191 cm Wt: 146 kg BSA: 2.83 m2 BP: 150 / 110 mmHg HR: 78 bpm Exam Date: 03/17/2025 8:29 AM Admit Date: 03/15/2025 Site: [facility] Room Number: 277 Patient Status: I Exam Type: CA echo doppler complete [place]: Kristen Bob Ordering Physician: Conchis Roth Study Info Indications c/f cardiomegaly, chronic meth use - Primary Location: S2NX Left Ventricular Outflow Tract Name Value Normal LVOT 2D LVOT Diameter 2.1 cm LVOT Doppler LVOT Peak Velocity 115 cm/s LVOT Mean Gradient 3 mmHg LVOT VTI 25 cm LVOT VTI/AV VTI Ratio 1.2 LVOT Stroke Volume 87 ml Pulmonic Valve Name Value Normal PV Doppler PV Peak Velocity 126 cm/s Mitral Valve Name Value Normal MV Doppler MV Mean Gradient 3 mmHg MV Decel [place] 694 cm/s2 MV PHT 27 ms MV Area (PHT) 8.2 cm2 4.0-5.0 MV Area (Cont Eq VTI) 4.0 cm2 MV Diastolic Function MV E Peak Velocity 64 cm/s MV A Peak Velocity 77 cm/s MV E/A 0.8 MV Annular TDI MV Septal e' Velocity 7.6 cm/s MV E/e' (Septal) 8.3 MV Lateral e' Velocity 12.3 cm/s MV E/e' (Lateral) 5.2 MV e' Average 9.96 cm/s MV E/e' (Average) 6.7 Tricuspid Valve Name Value Normal TV Regurgitation Doppler TR Peak Velocity 113 cm/s Estimated PAP/RSVP RA Pressure 3 mmHg <=5 PA Systolic Pressure 8 mmHg <36 RV Systolic Pressure 8 mmHg <36 Aortic Valve Name Value Normal AV Doppler AV Peak Velocity 132 cm/s AV Mean Gradient 3 mmHg AV VTI 22 cm AV Area (Cont Eq VTI) 4.0 cm2 >=3.0 AV Area (Cont Eq Marty) 3.0 cm2 AV DI (Marty) 0.87 AV Regurgitation 2D LVOT Area 3.5 cm2 Ventricles Name Value Normal LV Dimensions 2D/MM IVS Diastolic Thickness (2D) 0.9 cm 0.6-1.0 LVID Diastole (2D) 5.3 cm 4.2-5.8 LVIW Diastolic Thickness (2D) 1.1 cm 0.6-1.0 LVID Systole (2D) 3.9 cm 2.5-4.0 LVOT Diameter 2.1 cm LV Mass (2D Cubed) 200.40 g 88.00-224.00 LV Mass Index (2D Cubed) 71 g/m2 49-115 Relative Wall Thickness (2D) 0.42 <=0.42 IVS/LVIW Diastolic Thickness (2D) 0.82 0.00-1.50 LV Fractional Shortening/Ejection Fraction 2D/MM LV Fractional Shortening (2D) 26 % 25-43 LV EF (2D [place]) 51 % Atria Name Value Normal LA Dimensions LA Volume (4C A-L) 49 ml LA Volume (BP A-L) 69 ml Left Ventricle Left ventricular chamber dimension is normal. There is normal geometry noted in the left ventricle. Left ventricular segmental wall motion is normal. There is normal diastolic function in the left ventricle. Left ventricular systolic function is normal with visually estimated ejection fraction of 55-60%. Right Ventricle Right ventricular chamber dimension is mildly enlarged. Right ventricular systolic function is normal. Left Atrium Left atrial chamber dimension is normal. Right Atrium Right atrial chamber dimension is mildly enlarged. Aortic Valve The aortic valve is trileaflet. There is no aortic valve sclerosis. There is no aortic valve stenosis with a peak velocity of 132 cm/s, mean gradient of 3 mmHg, and aortic valve area of 4.0 cm2. There is no aortic valve regurgitation. Pulmonic Valve The pulmonic valve is normal. There is no pulmonic valve stenosis. There is no pulmonic regurgitation. Mitral Valve The mitral valve has normal leaflets. There is no mitral valve stenosis. There is mild mitral valve regurgitation. Tricuspid Valve The tricuspid valve leaflets are normal. There is no tricuspid valve stenosis. There is mild tricuspid valve regurgitation. No pulmonary hypertension, estimated pulmonary arterial systolic pressure is 8 mmHg and systemic blood pressure of 150 mmHg in systole. Pericardium/Pleural The pericardium appears normal. There is no pericardial effusion. No pleural effusion visualized. Inferior Vena Cava Normal inferior vena cava with >50% collapse upon inspiration consistent with normal right atrial pressure, 3 mmHg. Aorta The aortic measurements are indexed to age and body surface area. The aortic root at the sinus of Valsalva is not well visualized. The prox ascending aorta is not well visualized. Summary 1. Left ventricle size is normal and systolic function is normal. Estimated ejection fraction is 55-60%. There is normal diastolic function. 2. Right ventricle chamber size is mildly enlarged and systolic function is normal. Estimated RVSP is 8 mmHg. 3. There is mild mitral valve regurgitation. 4. There is mild tricuspid valve regurgitation. 5. The left atrium is normal. The right atrium is mildly enlarged. 6. Normal IVC with estimated RA pressure 3 mmHg. Report Signatures Finalized by Goyo Collazo on 03/19/2025 05:30 PM
--- NOTE | 2025-03-16 15:52 | PC.SS ---
Patient is alert/oriented. was able to verify demographics. Patient states he resides with his girlfriend and family. Patient is independent with ADL's. No DME. Patient states he has hx: anxiety but never been diagnosed or put on medication. Patient has a hx: of drug use. Patient used THC and meth. Patient drives himself to appointments. PCP: [facility] and last appt. was 2-3 years aog. Since then patient has not seen anyone or taking any medication. Discharge plan is to return home. Family to provide transportation. Alt medical decision maker: Tara Gutierrez, mother,
[2025-03-16] MEDS: SODIUM CHLORIDE 0.9% 100 ML IV (16:42)
--- NOTE | 2025-03-16 16:57 | SUR.PHASEI ---
1657: Pt. wakes to name then drifts back to sleep, pt. hypertensive, hydralizine 10mg given in OR prior to arrival to PACU, remaining vitals stable, breathing unlabored, no signs of distress, report received from Mila AN.
--- NOTE | 2025-03-16 17:25 | SUR.PHASEI ---
1725: Pt. AAOx4, vitals stable, breathing unlabored, no complaint of pain or nausea, no new dressing in place, no active bleed noted, gave report to Dahlia AN prior to transfer to room 277. Family made aware of transfer back to room.
[2025-03-16 17:52] LABS: Hematocrit 26.4 % (41.0-53.0)
[2025-03-16 17:57] LABS: Hemoglobin 7.4 g/dL (13.5-16.0)
[2025-03-16] MEDS: NA SU/NAHCO3/KC/PEG (Golytely) 4,000 ML BTL 4000 ML PO (18:48)
[2025-03-16] MEDS: ACETAMINOPHEN 325 MG TABLET 650 MG PO (21:03)
[2025-03-17] VITALS (12 sets, daily range): BP systolic 126–151; BP diastolic 79–101; PULSE 77–95; RESP 12–97; TEMP 36.3–37.3; O2SAT 96–99
[2025-03-17] MEDS: ACETAMINOPHEN 325 MG TABLET 650 MG PO (04:46)
[2025-03-17 05:40] LABS: Basophils # (Auto) 0.1 Thou/mm3 (0.0-0.2); Basophils % (Auto) 1 % (0-2.5); Eosinophils # (Auto) 0.5 Thou/mm3 (0.0-0.5); Eosinophils % (Auto) 7 % (0-10); Hematocrit 26.2 % (41.0-53.0); Immature Granulocytes Auto 0.04 Thou/mm3 (0.00-0.00); Immature Reticulocyte Fraction 46.8 % (2.3-13.4); Lymphocytes # (Auto) 1.0 Thou/mm3 (1.0-4.8); Lymphocytes % (Auto) 13 % (10-50); Mean Corpuscular HGB Conc 28.2 g/dl (31.0-37.0); Mean Corpuscular Hemoglobin 19.1 pg (25.0-35.0); Mean Corpuscular Volume 68 fL (80-100); Monocytes # (Auto) 1.0 Thou/mm3 (0.0-0.8); Monocytes % (Auto) 12 % (0-12); Neutrophils # (Auto) 5.2 Thou/mm3 (1.8-7.7); Neutrophils % (Auto) 67 % (37-80); Nucleated Red Blood Cell # 0.04 Thou/mm3 (0.00-0.00); Nucleated Red Blood Cell % 1 /100 WBC (0); Platelet Count 378 Thou/mm3 (140-440); RDW Standard Deviation 63.8 fL (35.1-43.9); Red Blood Count 3.88 Miln/mm3 (4.50-5.90); Reticulocyte % (Auto) 1.6 % (0.5-1.5); Reticulocyte Absolute Auto 63.2 Biln/L (25.0-75.0); Reticulocyte Hgb Content 15.0 pg (28.0-35.0); White Blood Count 7.8 Thou/mm3 (3.8-10.6)
[2025-03-17 05:43] LABS: Hemoglobin 7.4 g/dL (13.5-16.0)
[2025-03-17 06:13] LABS: Alanine Aminotransferase 12 U/L (10-49); Albumin, Serum 4.5 gm/dL (3.5-5.0); Albumin/Globulin Ratio 1.9 (1.2-2.2); Alkaline Phosphatase 78 U/L (46-116); Anion Gap 11 (7-16); Aspartate Amino Transferase 16 U/L (0-34); BUN/Creatinine Ratio 9 Ratio (12-20); Bilirubin,Total 1.0 mg/dL (0.3-1.2); Blood Urea Nitrogen 8 mg/dL (9-23); Calcium 9.6 mg/dL (8.3-10.6); Calcium (Corrected) 9.6 mg/dL (8.5-10.1); Carbon Dioxide 26.4 mMol/L (20.0-31.0); Chloride 105 mMol/L (98-107); Creatinine (Component) 0.9 mg/dL (0.6-1.3); Estimated Creatinine Clearance 164.8 mL/min (>60); Globulin 2.4 gm/dL (2.3-3.5); Glucose 90 mg/dL (74-106); Magnesium 2.0 mg/dL (1.6-2.6); Osmolality,Calculated 281 (275-295); Phosphorous 3.8 mg/dL (2.4-5.1); Potassium 3.7 mMol/L (3.4-5.1); Sodium 142 mMol/L (136-145); Total Protein 6.9 gm/dL (5.7-8.2); eGFR > 60 See Note
--- NOTE | 2025-03-17 07:50 | ESPR_ITS ---
<Statement entered by Zeynep Kendrick MD - 03/17/25 17:05> Pt is seen at bedside, pt underwent EGD with no signs of active bleeding. Pending colonoscopy Patient was seen and examined by me personally. I have directly supervised and reviewed documentation by the team resident and agree with its findings. ------- Plan of care was discussed with the attending, Dr. Irasema Kendrick, PGY-2 Documentation for date of: 03/17/25 Subjective Subjective Interval history: patient seen and examined at bedside s/p egd yesterday with findings of gastric erythema, and short segment barrets, no active bleeding on clear liquid with golytely ongoing for pending colonoscopy Hgb stable HTN, pt given hydrayl yesterday afternoon, will start oral agent today. echo taken, pending read Exam Vital Signs Temp Pulse Resp BP Pulse Ox O2 Del Method O2 Flow Rate 98.4 F 77 16 126/79 99 Room Air 3 03/17/25 05:45 03/17/25 07:03 03/17/25 07:03 03/17/25 04:00 03/17/25 07:03 03/17/25 00:00 03/16/25 16:45 Narrative Exam GENERAL APPEARANCE: AOx3. NAD, activity normal for age, well developed/ well nourished, no cyanosis or diaphoresis. + pallor. Poor capillary refill >3 seconds HEENT: Normocephalic atraumatic, no facial trauma, neck is supple. L ids/conjunctiva pale. Mucous membranes moist, CARDIAC: Regular rate and rhythm, S1+S2 heard. No murmurs, rubs, or gallops noted RESPIRATORY: respiratory effort normal, speaks in full sentences, no tripod position, no accessory muscle use. Lungs clear to auscultation ABDOMINAL: NBS. Soft, ND/NT. No evidence of fluid wave. No pulsatile masses on exam, rebound tenderness, MUSCLES/EXTREMITIES: L arm in sling no numbness with emma bandage and splint. able to wiggle fingers. +2 pedal edema DERM: Warm, pink and dry. No rashes, dermatoses, petechiae or lesions. NEUROLOGICAL: Speech is clear and appropriate. Normal level of consciousness. Gait and coordination are normal. 5/5 strength in all extremities. PSYCH: Normal mood and affect. Judgement/competence is appropriate Objective Labs 03/17/25 04:32 03/17/25 04:32 Labs: Laboratory Results - last 24 hr 03/15/25 03/15/25 03/16/25 16:31 17:26 11:09 WBC RBC Hgb 6.4 L* Hct 22.8 L MCV MCH MCHC RDW Std Deviation Plt Count Neut % (Auto) Lymph % (Auto) [place] % (Auto) Eos % (Auto) Baso % (Auto) Neut # (Auto) Lymph # (Auto) [place] # (Auto) Eos # (Auto) Baso # (Auto) Immature Gran # (Auto) Absolute Nucleated RBC Immature Gran % Nucleated RBC % Retic Count (auto) Absolute Retic Immature Retic Fraction Retic Hgb Content CHr Sodium Potassium Chloride Carbon Dioxide Anion Gap BUN Creatinine Estim Creat Clear Calc eGFR BUN/Creatinine Ratio Glucose Calculated Osmolality Calcium Corrected Calcium Phosphorus Magnesium Iron 10 L TIBC 468 H Iron Saturation 2 L Unsat Iron Binding 458 H Ferritin 2 L Total Bilirubin AST ALT Alkaline Phosphatase Total Protein Albumin Globulin Albumin/Globulin Ratio Blood Type A Positive Antibody Screen NEGATIVE Crossmatch See Detail Blood Bank Wristband ID Yes 03/16/25 03/17/25 17:43 04:32 WBC 7.8 RBC 3.88 L Hgb 7.4 L 7.4 L Hct 26.4 L 26.2 L MCV 68 L MCH 19.1 L MCHC 28.2 L RDW Std Deviation 63.8 H Plt Count 378 Neut % (Auto) 67 Lymph % (Auto) 13 [place] % (Auto) 12 Eos % (Auto) 7 Baso % (Auto) 1 Neut # (Auto) 5.2 Lymph # (Auto) 1.0 [place] # (Auto) 1.0 H Eos # (Auto) 0.5 Baso # (Auto) 0.1 Immature Gran # (Auto) 0.04 H Absolute Nucleated RBC 0.04 H Immature Gran % 1 H Nucleated RBC % 1 H Retic Count (auto) 1.6 H Absolute Retic 63.2 Immature Retic Fraction 46.8 H Retic Hgb Content CHr 15.0 L Sodium 142 Potassium 3.7 Chloride 105 Carbon Dioxide 26.4 Anion Gap 11 BUN 8 L Creatinine 0.9 Estim Creat Clear Calc 164.8 eGFR > 60 BUN/Creatinine Ratio 9 L Glucose 90 Calculated Osmolality 281 Calcium 9.6 Corrected Calcium 9.6 Phosphorus 3.8 Magnesium 2.0 Iron TIBC Iron Saturation Unsat Iron Binding Ferritin Total Bilirubin 1.0 AST 16 ALT 12 Alkaline Phosphatase 78 Total Protein 6.9 Albumin 4.5 Globulin 2.4 Albumin/Globulin Ratio 1.9 Blood Type Antibody Screen Crossmatch Blood Bank Wristband ID Quality Measures Quality Measures VTE prophylaxis Assessment & Plan Assessment Current Active Medications: Generic Name Dose Route Start Last Admin Trade Name Freq PRN Reason Stop Dose Admin Acetaminophen 650 mg 03/15/25 19:50 03/17/25 04:46 Acetaminophen 325 Mg Tablet PO 04/14/25 19:49 650 mg Q6H PRN Administration Fever >100.4 or pain 1-3 Hydrocodone Bitart/Acetaminophen 1 tab 03/15/25 19:50 03/16/25 10:44 Hydrocodone/Apap 5/325 Tablet PO 03/20/25 19:49 1 tab Q4HR PRN Administration PAIN SCALE 4-6 (Moderate Albuterol/Ipratropium 3 ml 03/15/25 19:50 Albuterol/Ipratropium (Duoneb) Rt Elysia 3 Ml Nebu INH 04/14/25 22:59 Q4HRRT PRN wheezing Docusate Sodium 100 mg 03/16/25 09:00 03/16/25 09:00 Docusate Sod 100 Mg Capsule PO 04/15/25 08:59 Not Given QDAY SEUN Protocol Iron Sucrose 200 mg 03/16/25 11:45 03/16/25 12:02 Iron Sucrose Cplx Inj 20 Mg/Ml Vial 5 Ml IVP 03/18/25 12:00 200 mg QDAY SEUN Administration Ondansetron HCl 4 mg 03/15/25 19:50 Ondansetron Inj 2 Mg/Ml Inj 2 Ml IVP 04/14/25 19:49 Q6H PRN NAUSEA OR VOMITING Protocol Pantoprazole Sodium 40 mg 03/16/25 09:00 03/16/25 20:50 Pantoprazole Inj 40 Mg Vial IVP 04/15/25 08:59 40 mg BID SEUN Administration Plan Mr Pickens is 40 year old gentleman with history of asthma and meth and tobacco use who presented to the ED for evaluation of left upper extremity pain after ground level fall and syncopal episode, found to have severe microcytic anemia with HGb 4.7. Admitted for symptomatic acute microcytic anemia. Given 4 units of PRBCs, egd with errythema, no active bleeding, pending colonoscopy. hgb stable at 7.4 #Acute symptomatic anemia #Upper vs Lower GI bleed suspected #GERD Hgb 4.7 HCT 18.5 MCV 61 on admission. Presented due to arm fracture after falling from a lightheaded episode.additionally complains of on/off mild sharp chest pain, shortness of breath, and feeling fatigued over the course of 1-2 months. Worse with exertion. Not associated with eating. States it usually occurs after working in the heat and that he does not drink enough water - mainly sodas. Also confirms he intermittently/frequently does methamphetamines. Denies any bleeding gums, epistaxis, hematemesis, abdominal pain, hematuria, hematochezia. Denies any known history of anemia. No blood thinners, no asp/plavix, ibuprofen. Patient most likely is volume depleted/anemic. Has prolonged capillary refill >3 seconds and mucosal and nail pallor. 03/16: s/p 4 units prbc, stable Plan: -SCDs -Orthostatic vitals -Iron studies -Transfuse if Hgb >7 -Peripheral blood smear with microcytic anemia and thrombocytosis 2/2 iron deficiency anemia -GI Dr. Martin consulted --> pending colonoscopy, sp EGD on 03/16 -FOBT pending -retic count, elevated -IV Iron Succrose 200 mg QD for 3 days 03/16-03/19 #HTN patient with persistently elevated BP, with dbp 100s to 110s, SBP to 140s 150s Plan - start lisinopril 5 qd 03/17 #Acute undisplaced fractures of coronoid process #Acute non-displaced fracture of distal radial metaphysis #Fall Patient presents after ground level fall where he reports his elbow bent backwards. fragments. Suspicious for non-displaced fracture of the radial neck. Humerus XR: negative for fracture. Wrist XR: acute non-displaced comminuted fractures distal radial metaphysis. Elbow XR: Fracture of the medial ulna with non-displaced 17 mm fracture fragment. Distal humerus radial head and neck appear intact. Plan: -Splinted in ED -Elbow CT with -Ortho consult, appreciate recs #Prostatomegaly? Ddx BPH Patient also has difficulty completely emptying his bladder at times and needing to urinate 1-2x per hour each night. He thinks he may have an enlarged prostate but is not concerned with it at the moment. Plan: -Tamsulosin initiation after EGD -FUP outpatient with urology -bladder scans prn #Asthma Patient was on an inhaler for many years, decided 10 years ago to stop using his inhaler because he was using it too much. Minor bilateral wheezes on exam. Plan: -Duonebs PRN Q4HRRT #Polysubstance Use #Tobacco Use disorder #alcohol Use disorder Patient reports using methamphetamines and cannabis. UDS +Meth +cannabis +opiates. Patient denies opiate use, of note UDS was taken after administration of Narco. patient reports smoking 1/2 a pack of cigarrettes / day Plan: -Counseled patient on meth cessation -consider nicotine patch as needed -echo taken, pending read -consider ciwa if pt demonstrates signs of withdrawl. Health Maintenance: Code status: Full DVT prophylaxis: SCDs GI prophylaxis: Protonix Diet: clears pending colonoscopy Wood: None Lines: PIV Supplemental O2: None Disposition: pending colonoscopy for Symptomatic acute microcytic anemia, hgb stable Plan discussed with my attending Dr. Villalpando and my senior Dr. Aroldo Roth MD PGY1 Attending Provider Attestation/Addendum I have seen and examined the patient. I was physically present for the butts portions of the services provided including history, physical exam, diagnosis, treatment plans and orders. I agree with assessment and plan of care as documented by residents. Patient seen and examined at bedside this morning. Appears comfortable and denies any new complaints. Underwent EGD yesterday, was found to have Osorio's esophagus and erythema around gastric antrum. Hemoglobin is stable at 7.4. Noted to have high blood pressure this morning, started on. Patient is planned for colonoscopy with GI, currently getting GoLytely preparation. Continues to be on tonics, we will monitor her hemoglobin closely and transfuse if needed. Orthopedics following closely for ulnar fracture, we recommended conservative management with outpatient orthopedics follow-up. Even though this this note was carefully revised there may still be minor errors in director of government sales due to voice recognition software. Asa Villalpando MD
[2025-03-17] MEDS: DOCUSATE SOD 100 MG CAPSULE PO (07:57)
[2025-03-17] MEDS: HYDROcodone/APAP 5/325 TABLET 1 TAB PO ×2 (07:57→19:47)
[2025-03-17] MEDS: IRON SUCROSE CPLX INJ 20 MG/ML VIAL 5 ML 200 MG IVP (07:58)
--- NOTE | 2025-03-17 08:43 | PC.NURSE ---
Notified Dr. Martin pt states he will not take golytely however pt is willing to have NG tube put in for golytely. Per MD place NG tube AND GIVE GOLYTELY AT 400CC/HR
--- NOTE | 2025-03-17 09:05 | PC.NURSE ---
Ateempted to put in NG tube and pt would not tolerate than refused. Pt agreed to drink golytely instead
--- NOTE | 2025-03-17 09:40 | PC.SS ---
rounding note: Patient pending colonoscopy with a d/c
[2025-03-17] MEDS: FOLIC ACID 1 MG TABLET PO (11:15)
[2025-03-17] MEDS: THIAMINE 100 MG TABLET PO (11:15)
--- NOTE | 2025-03-17 17:37 | PD.IMPROG ---
Documentation for date of: 03/17/25 Subjective Subjective Interval history: Patient evaluated Hemoglobin hematocrit 7.4 and 26.2 GoLytely prep in progress Exam Vital Signs Temp Pulse Resp BP Pulse Ox O2 Del Method O2 Flow Rate 98.6 F 81 17 145/99 H 98 Room Air 3 03/17/25 12:00 03/17/25 12:00 03/17/25 12:00 03/17/25 12:00 03/17/25 12:00 03/17/25 12:00 03/17/25 12:00 Objective Labs 03/17/25 04:32 03/17/25 04:32 Labs: Laboratory Results - last 24 hr 03/16/25 03/17/25 17:43 04:32 WBC 7.8 RBC 3.88 L Hgb 7.4 L 7.4 L Hct 26.4 L 26.2 L MCV 68 L MCH 19.1 L MCHC 28.2 L RDW Std Deviation 63.8 H Plt Count 378 Neut % (Auto) 67 Lymph % (Auto) 13 [place] % (Auto) 12 Eos % (Auto) 7 Baso % (Auto) 1 Neut # (Auto) 5.2 Lymph # (Auto) 1.0 [place] # (Auto) 1.0 H Eos # (Auto) 0.5 Baso # (Auto) 0.1 Immature Gran # (Auto) 0.04 H Absolute Nucleated RBC 0.04 H Immature Gran % 1 H Nucleated RBC % 1 H Retic Count (auto) 1.6 H Absolute Retic 63.2 Immature Retic Fraction 46.8 H Retic Hgb Content CHr 15.0 L Sodium 142 Potassium 3.7 Chloride 105 Carbon Dioxide 26.4 Anion Gap 11 BUN 8 L Creatinine 0.9 Estim Creat Clear Calc 164.8 eGFR > 60 BUN/Creatinine Ratio 9 L Glucose 90 Calculated Osmolality 281 Calcium 9.6 Corrected Calcium 9.6 Phosphorus 3.8 Magnesium 2.0 Total Bilirubin 1.0 AST 16 ALT 12 Alkaline Phosphatase 78 Total Protein 6.9 Albumin 4.5 Globulin 2.4 Albumin/Globulin Ratio 1.9 Impressions Impression: Anemia blood loss requiring blood transfusion Continue GoLytely prep if the patient is uncooperative will consider NGT by giving her GoLytely through the NGT Assessment & Plan A&P Narrative # Anemia blood loss Occult GI bleeding # Shortness of breath secondary to above Plan Agree with the blood transfusion Prior to transfusion iron panel, iron saturation reticulocyte count B12 and folate level IV Protonix Consent obtained for fiberoptic esophagogastroduodenoscopy with possible therapeutic intervention possible biopsy under intravenous moderate sedation scheduled for tomorrow If EGD is negative Will consider doing a fiberoptic colonoscopy prior to discharge Thank you very much for the opportunity to participate in care of this patient Time Spent With Patient Time: Total time spent is greater than 50% in coordination of care (as documented) at patient's floor/unit and/or counseling patient:
[2025-03-18] VITALS: BP 149/91; PULSE 86; PULSE 88; RESP 16; TEMP 36.6; O2SAT 95
[2025-03-18 03:53] VITALS: BP 149/91; PULSE 86; RESP 16; TEMP 36.6; O2SAT 95
[2025-03-18 04:00] VITALS: PULSE 83
[2025-03-18 05:29] LABS: Basophils # (Auto) 0.1 Thou/mm3 (0.0-0.2); Basophils % (Auto) 1 % (0-2.5); Eosinophils # (Auto) 0.7 Thou/mm3 (0.0-0.5); Eosinophils % (Auto) 8 % (0-10); Hematocrit 30.7 % (41.0-53.0); Immature Granulocytes Auto 0.05 Thou/mm3 (0.00-0.00); Lymphocytes # (Auto) 0.9 Thou/mm3 (1.0-4.8); Lymphocytes % (Auto) 11 % (10-50); Mean Corpuscular HGB Conc 27.4 g/dl (31.0-37.0); Mean Corpuscular Hemoglobin 18.9 pg (25.0-35.0); Mean Corpuscular Volume 69 fL (80-100); Monocytes # (Auto) 0.9 Thou/mm3 (0.0-0.8); Monocytes % (Auto) 11 % (0-12); Neutrophils # (Auto) 5.5 Thou/mm3 (1.8-7.7); Neutrophils % (Auto) 68 % (37-80); Nucleated Red Blood Cell # 0.03 Thou/mm3 (0.00-0.00); Nucleated Red Blood Cell % 0 /100 WBC (0); Platelet Count 372 Thou/mm3 (140-440); RDW Standard Deviation 66.5 fL (35.1-43.9); Red Blood Count 4.44 Miln/mm3 (4.50-5.90); White Blood Count 8.1 Thou/mm3 (3.8-10.6)
[2025-03-18 05:30] LABS: Hemoglobin 8.4 g/dL (13.5-16.0)
[2025-03-18 05:51] LABS: Alanine Aminotransferase 10 U/L (10-49); Albumin, Serum 4.8 gm/dL (3.5-5.0); Albumin/Globulin Ratio 1.7 (1.2-2.2); Alkaline Phosphatase 80 U/L (46-116); Anion Gap 11 (7-16); Aspartate Amino Transferase 15 U/L (0-34); BUN/Creatinine Ratio 10 Ratio (12-20); Bilirubin,Total 1.0 mg/dL (0.3-1.2); Blood Urea Nitrogen 9 mg/dL (9-23); Calcium 9.3 mg/dL (8.3-10.6); Calcium (Corrected) 9.3 mg/dL (8.5-10.1); Carbon Dioxide 26.7 mMol/L (20.0-31.0); Chloride 104 mMol/L (98-107); Creatinine (Component) 0.9 mg/dL (0.6-1.3); Estimated Creatinine Clearance 164.8 mL/min (>60); Globulin 2.8 gm/dL (2.3-3.5); Glucose 92 mg/dL (74-106); Magnesium 2.2 mg/dL (1.6-2.6); Osmolality,Calculated 281 (275-295); Phosphorous 3.6 mg/dL (2.4-5.1); Potassium 4.0 mMol/L (3.4-5.1); Sodium 142 mMol/L (136-145); Total Protein 7.6 gm/dL (5.7-8.2); eGFR > 60 See Note
[2025-03-18 07:00] VITALS: BP 128/97; PULSE 92; RESP 18; TEMP 36.5; O2SAT 96
--- NOTE | 2025-03-18 07:25 | PD.RESPRO ---
Documentation for date of: 03/18/25 Exam Vital Signs Temp Pulse Resp BP Pulse Ox O2 Del Method O2 Flow Rate 97.9 F 83 16 149/91 H 95 Room Air 3 03/18/25 03:53 03/18/25 04:00 03/18/25 03:53 03/18/25 03:53 03/18/25 03:53 03/18/25 03:53 03/18/25 03:53 Objective Labs 03/18/25 04:39 03/18/25 04:39 Labs: Laboratory Results - last 24 hr 03/18/25 04:39 WBC 8.1 RBC 4.44 L Hgb 8.4 L Hct 30.7 L MCV 69 L MCH 18.9 L MCHC 27.4 L RDW Std Deviation 66.5 H Plt Count 372 Neut % (Auto) 68 Lymph % (Auto) 11 [place] % (Auto) 11 Eos % (Auto) 8 Baso % (Auto) 1 Neut # (Auto) 5.5 Lymph # (Auto) 0.9 L [place] # (Auto) 0.9 H Eos # (Auto) 0.7 H Baso # (Auto) 0.1 Immature Gran # (Auto) 0.05 H Absolute Nucleated RBC 0.03 H Immature Gran % 1 H Nucleated RBC % 0 Sodium 142 Potassium 4.0 Chloride 104 Carbon Dioxide 26.7 Anion Gap 11 BUN 9 Creatinine 0.9 Estim Creat Clear Calc 164.8 eGFR > 60 BUN/Creatinine Ratio 10 L Glucose 92 Calculated Osmolality 281 Calcium 9.3 Corrected Calcium 9.3 Phosphorus 3.6 Magnesium 2.2 Total Bilirubin 1.0 AST 15 ALT 10 Alkaline Phosphatase 80 Total Protein 7.6 Albumin 4.8 Globulin 2.8 Albumin/Globulin Ratio 1.7 Quality Measures Quality Measures VTE prophylaxis Assessment & Plan Assessment Current Active Medications: Generic Name Dose Route Start Last Admin Trade Name Freq PRN Reason Stop Dose Admin Acetaminophen 650 mg 03/15/25 19:50 03/17/25 04:46 Acetaminophen 325 Mg Tablet PO 04/14/25 19:49 650 mg Q6H PRN Administration Fever >100.4 or pain 1-3 Hydrocodone Bitart/Acetaminophen 1 tab 03/15/25 19:50 03/17/25 19:47 Hydrocodone/Apap 5/325 Tablet PO 03/20/25 19:49 1 tab Q4HR PRN Administration PAIN SCALE 4-6 (Moderate Albuterol/Ipratropium 3 ml 03/15/25 19:50 Albuterol/Ipratropium (Duoneb) Rt Elysia 3 Ml Nebu INH 04/14/25 22:59 Q4HRRT PRN wheezing Docusate Sodium 100 mg 03/16/25 09:00 03/17/25 07:57 Docusate Sod 100 Mg Capsule PO 04/15/25 08:59 100 mg QDAY SEUN Administration Protocol Folic Acid 1 mg 03/17/25 10:45 03/17/25 11:15 Folic Acid 1 Mg Tablet PO 04/16/25 10:44 1 mg QDAY SEUN Administration Iron Sucrose 200 mg 03/16/25 11:45 03/17/25 07:58 Iron Sucrose Cplx Inj 20 Mg/Ml Vial 5 Ml IVP 03/18/25 12:00 200 mg QDAY SEUN Administration Lisinopril 5 mg 03/17/25 10:45 03/17/25 11:14 Lisinopril 2.5 Mg Tablet PO 04/16/25 10:44 5 mg QDAY SEUN Administration Ondansetron HCl 4 mg 03/15/25 19:50 Ondansetron Inj 2 Mg/Ml Inj 2 Ml IVP 04/14/25 19:49 Q6H PRN NAUSEA OR VOMITING Protocol Pantoprazole Sodium 40 mg 03/16/25 09:00 03/17/25 20:45 Pantoprazole Inj 40 Mg Vial IVP 04/15/25 08:59 40 mg BID SEUN Administration Thiamine HCl 100 mg 03/17/25 10:45 03/17/25 11:15 Thiamine 100 Mg Tablet PO 04/16/25 10:44 100 mg QDAY SEUN Administration
[2025-03-18 08:00] VITALS: PULSE 85
--- NOTE | 2025-03-18 08:03 | PD.RESDS ---
Planned Discharge Date 03/18/25 DS: Providers Provider Date of admission: 03/15/25 19:19 Primary care physician: Jose Powell MD Admitting Provider: Miguel Holman MD Attending Provider on Admission: Asa Villalpando MD Consults: 03/15/25 17:40 Consult to Gastroenterology Stat Comment: Consulting Provider: Jordin Martin Attending Provider on DC: Asa Villalpando MD Discharging Provider: Asa Villalpando MD DS: Diagnosis Problem List Completed Was Problem List Reviewed/Reconciled?: Yes Hospital Course Hospital Course Hospital course: Hospital Course Mr Pickens is 40 year old gentleman with history of asthma and meth and tobacco use who presented to the ED for evaluation of left upper extremity pain after ground level fall and syncopal episode, found to have severe microcytic anemia with HGb 4.7. Admitted for symptomatic acute microcytic anemia. He was given a total of 4 units of PRBCs, and hgb remained stable at 8. GI was consulted, performed EGD with gastritis, no evidence of active bleeding, pt was recommended to have colonoscopy and started on golytely prep. Patient started the prep for colonoscopy but did not complete the prep nor did he have the colonoscopy. On admission patient had CT elbow done which showed nondisplaced fracture of the distal radial metaphysis, Ortho was consulted who recommended splinting and outpatient follow up. Patient decided to leave against medical advice. Diagnoses #Acute symptomatic anemia #Upper vs Lower GI bleed suspected #GERD #HTN #Acute undisplaced fractures of coronoid process #Acute non-displaced fracture of distal radial metaphysis #Fall #Polysubstance Use #Tobacco Use disorder #alcohol Use disorder #Prostatomegaly? #Asthma Discharge instructions - Patient left AMA Plan discussed with my attending Dr. Irasema Roth MD PGY1 Time Spent with Patient Time attestation: Total time spent providing and/or coordinating discharge services: Time spent: Greater than 30 minutes Exam Vital Signs Temp Pulse Resp BP Pulse Ox O2 Del Method O2 Flow Rate 97.9 F 83 16 149/91 H 95 Room Air 3 03/18/25 03:53 03/18/25 04:00 03/18/25 03:53 03/18/25 03:53 03/18/25 03:53 03/18/25 03:53 03/18/25 03:53 Narrative Exam GENERAL APPEARANCE: AOx3. NAD, activity normal for age, well developed/ well nourished, no cyanosis or diaphoresis. HEENT: Normocephalic atraumatic, no facial trauma, neck is supple. Lids/conjunctiva pale. Mucous membranes moist, CARDIAC: Regular rate and rhythm, S1+S2 heard. No murmurs, rubs, or gallops noted RESPIRATORY: respiratory effort normal, speaks in full sentences, no tripod position, no accessory muscle use. Lungs clear to auscultation ABDOMINAL: NBS. Soft, ND/NT. No evidence of fluid wave. No pulsatile masses on exam, rebound tenderness, MUSCLES/EXTREMITIES: L arm in sling no numbness with emma bandage and splint. able to wiggle fingers. +2 pedal edema DERM: Warm, pink and dry. No rashes, dermatoses, petechiae or lesions. NEUROLOGICAL: Speech is clear and appropriate. Normal level of consciousness. Gait and coordination are normal. 5/5 strength in all extremities. PSYCH: Normal mood and affect. Judgement/competence is appropriate Discharge Plan Plan Patient Disposition: Left Against Medical Advice Prescriptions/Referrals Prescriptions/Med Rec: No Action No Known Home Medications Referrals: Jose Powell MD [Primary Care Provider, Family Practice] Patient/Caregiver Discharge Instructions Print Language: [place] Stand Alone Forms: Rissa Award Info., Patient Portal Info Letter Quality Discharge Quality Measures VTE prophylaxis MD Attestestation MD Attestation I agree with assessment and plan of care as documented by residents. Patient decided to leave AGAINST MEDICAL ADVICE before able to see. Even though this this note was carefully revised there may still be minor errors in medical accounting clerk due to voice recognition software. Asa Villalpando MD
--- NOTE | 2025-03-18 10:05 | PD.IMPROG ---
Documentation for date of: 03/18/25 Subjective Subjective Interval history: Patient signing out AGAINST MEDICAL ADVICE He can come back as an outpatient I can perform a colonoscopy Exam Vital Signs Temp Pulse Resp BP Pulse Ox O2 Del Method O2 Flow Rate 97.7 F 85 18 128/97 H 96 Room Air 3 03/18/25 07:00 03/18/25 08:00 03/18/25 07:00 03/18/25 07:00 03/18/25 07:00 03/18/25 07:00 03/18/25 07:00 Objective Labs 03/18/25 04:39 03/18/25 04:39 Labs: Laboratory Results - last 24 hr 03/18/25 04:39 WBC 8.1 RBC 4.44 L Hgb 8.4 L Hct 30.7 L MCV 69 L MCH 18.9 L MCHC 27.4 L RDW Std Deviation 66.5 H Plt Count 372 Neut % (Auto) 68 Lymph % (Auto) 11 [place] % (Auto) 11 Eos % (Auto) 8 Baso % (Auto) 1 Neut # (Auto) 5.5 Lymph # (Auto) 0.9 L [place] # (Auto) 0.9 H Eos # (Auto) 0.7 H Baso # (Auto) 0.1 Immature Gran # (Auto) 0.05 H Absolute Nucleated RBC 0.03 H Immature Gran % 1 H Nucleated RBC % 0 Sodium 142 Potassium 4.0 Chloride 104 Carbon Dioxide 26.7 Anion Gap 11 BUN 9 Creatinine 0.9 Estim Creat Clear Calc 164.8 eGFR > 60 BUN/Creatinine Ratio 10 L Glucose 92 Calculated Osmolality 281 Calcium 9.3 Corrected Calcium 9.3 Phosphorus 3.6 Magnesium 2.2 Total Bilirubin 1.0 AST 15 ALT 10 Alkaline Phosphatase 80 Total Protein 7.6 Albumin 4.8 Globulin 2.8 Albumin/Globulin Ratio 1.7 Impressions Impression: Occult GI bleeding needs colonoscopy but patient signing out AGAINST MEDICAL ADVICE I can still do an outpatient colonoscopy if he wishes Assessment & Plan A&P Narrative # Anemia blood loss Occult GI bleeding # Shortness of breath secondary to above Plan Agree with the blood transfusion Prior to transfusion iron panel, iron saturation reticulocyte count B12 and folate level IV Protonix Consent obtained for fiberoptic esophagogastroduodenoscopy with possible therapeutic intervention possible biopsy under intravenous moderate sedation scheduled for tomorrow If EGD is negative Will consider doing a fiberoptic colonoscopy prior to discharge Thank you very much for the opportunity to participate in care of this patient Time Spent With Patient Time: Total time spent is greater than 50% in coordination of care (as documented) at patient's floor/unit and/or counseling patient:
== END 2025-03-18 08:26 | disposition left against medical advice (07) | DRG 254 ==
LOC: SERX 17:47 → SERHOLD 19:33 → S3SX 03-16 05:59 → S2NX 03-16 06:00 → S3NX 03-17 09:25
PROVIDERS: Nurse Practitioner Family; Specialist; Student in an Organized Health Care Education/Training Program; Admitting Provider Internal Medicine; Emergency Provider Emergency Medicine; PCP Family Medicine; Visit Provider Student in an Organized Health Care Education/Training Program
PROC: (CPT 43239; principal; 2025-03-16 17:00)
DX: K92.1 Melena (principal); K22.89 Other specified disease of esophagus; D62 Acute posthemorrhagic anemia; S52.502A Unspecified fracture of the lower end of left radius, initial encounter for closed fracture; K31.89 Other diseases of stomach and duodenum; K21.9 Gastro-esophageal reflux disease without esophagitis; J45.909 Unspecified asthma, uncomplicated; I10 Essential (primary) hypertension; K22.70 Barrett's esophagus without dysplasia; D75.838 Other thrombocytosis; S52.045A Nondisplaced fracture of coronoid process of left ulna, initial encounter for closed fracture; N40.0 Benign prostatic hyperplasia without lower urinary tract symptoms; F15.10 Other stimulant abuse, uncomplicated; F11.10 Opioid abuse, uncomplicated; F12.10 Cannabis abuse, uncomplicated; F10.10 Alcohol abuse, uncomplicated; F17.210 Nicotine dependence, cigarettes, uncomplicated; Z53.29 Procedure and treatment not carried out because of patient's decision for other reasons; Z91.030 Bee allergy status; Z91.018 Allergy to other foods; W01.0XXA Fall on same level from slipping, tripping and stumbling without subsequent striking against object, initial encounter; Y93.89 Activity, other specified; Y99.0 Civilian activity done for income or pay
CPT/HCPCS: 36415; 71045; 73060; 73070; 73100; 73200; 80053; 80307; 81001; 82728; 83540; 83550; 83735; 83880; 84100; 84484; 85014; 85018; 85025; 85046; 85379; 85730; 86850; 86900; 86901; 86923; 87635; 93005; 93225; 93306; 94664; 96374; 96375; 96376; 99283; A4565; A4649; J0360; J1200; J1756; J1920; J2250; J2470; J3010; J3490; J7050; P9016; A9270

== ENCOUNTER → 2025-03-30 | Outpatient (CLI) | payer MEDICAID, SELFPAY ==
--- NOTE | 2025-03-30 | XR_ITS ---
Examination: Wrist, left 3 views Technique: Wrist AP, oblique, lateral 3 views Date and time of exam: March 30, 2025, 1151 hours, comparison March 15, 2025 FINDINGS: Healing fracture distal radial metaphysis with stable and satisfactory alignment IMPRESSION: Healing fracture distal radial metaphysis with stable and satisfactory alignment
--- NOTE | 2025-03-30 | XR_ITS ---
Examination: Left elbow 3 views Technique: Elbow AP, oblique, lateral 3 views Exam date and time: March 30, 2025, 1151 hours INDICATIONS: Injury to the elbow March 15, 2025 FINDINGS: Stable alignment fractures off the coronoid process of the ulna Distal humerus radius intact IMPRESSION: Partial healing and stable alignment fractures off the coronoid process of the ulna
--- NOTE | 2025-03-30 | XR_ITS ---
Examination: Hand, left 3 views Technique: Hand AP, oblique, lateral 3 views Date and time of exam: March 30, 2025, 1151 hours INDICATIONS: Injury to the left hand March 15, 2025 FINDINGS: Acute nondisplaced fractures distal radial metaphysis with partial healing Carpal bones and metacarpals digits appear intact IMPRESSION: Acute comminuted nondisplaced fractures distal radial metaphysis with partial healing
== END | disposition home or self-care (01) ==
PROVIDERS: PCP Family Medicine
DX: S52.92XA Unspecified fracture of left forearm, initial encounter for closed fracture (principal); S42.132A Displaced fracture of coracoid process, left shoulder, initial encounter for closed fracture; X58.XXXA Exposure to other specified factors, initial encounter
CPT/HCPCS: 73080; 73110; 73130